=== PATIENT | female | born 1995 | race Caucasian/White ===

== ENCOUNTER 2016-09-17 12:22 | Inpatient (IN) | payer OTHER ==
[~2016-09-17] VITALS: Ht 162.6 cm; Wt 48.7 kg
[2016-09-17] MEDS ORDERED: MoRPHine SULFATE 4 MG/ML 1 ML CARP\\VIAL IV STA ×2 (13:08→18:07)
[2016-09-17] MEDS ORDERED: SODIUM CHLORIDE 0.9% 500ML 500 ML IV SCH (13:15)
[2016-09-17] MEDS ORDERED: MESA1.2T PO (13:34)
[2016-09-17] MEDS ORDERED: MULT-506 PO (13:34)
[2016-09-17] MEDS ORDERED: PRED10TA PO (13:34)
[2016-09-17 13:35] LABS: BASO % 0.1 %; BASO ABS # 0.01 K/uL (0-0.2); COMPLETE YES; EOS % 0.1 %; HEMATOCRIT 46.6 % (37-47); IG% 0.4 %; LYMPH % 8.1 %; MEAN CELL VOLUME 85.2 fL (80-100); MEAN CORPUSCULAR HEMOGLOBIN 27.2 pg (25-34); MONO % 8.3 %; PLATELET COUNT 245 K/uL (130-400); RED BLOOD COUNT 5.47 M/uL (4.2-5.4)
--- NOTE | 2016-09-17 13:36 | DIAGNOSTIC IMAGING REPORT ---
CHEST ONE VIEW PORTABLE CLINICAL HISTORY: Recent travel. Tachycardia. COMPARISON STUDY: No previous studies for comparison. FINDINGS: Lung volumes are normal. Lungs are clear. There is no pneumothorax or pleural effusion. Cardiac size is normal. Mediastinal contours are normal. There is no evidence of pulmonary edema. IMPRESSION: No acute cardiopulmonary findings. Electronically signed by: Chris Luke M.D. 09/17/2016 1:35 PM Dictated Date/Time: 09/17/2016 1:34 PM
[2016-09-17 13:38] LABS: PARTIAL THROMBOPLASTIN RATIO 0.9; PROTHROMBIN TIME (PATIENT) 10.7 SECONDS (9.0-12.0)
[2016-09-17 13:42] LABS: BUN/CREATININE RATIO 10.1 (10-20); CREATININE 0.76 mg/dl (0.60-1.20); POTASSIUM 2.9 mmol/L (3.5-5.1)
[2016-09-17 13:45] LABS: C-REACTIVE PROTEIN 2.32 mg/dl (0-0.29)
--- NOTE | 2016-09-17 14:07 | EMERGENCY ROOM VISIT NOTE ---
History Report prepared by Barbara: Machelle Cuadra Under the Supervision of: Dr. Humberto Loomis M.D. First contact with patient: 12:43 Chief Complaint: LEG PAIN,LEG INJURY Stated Complaint: LEFT LEG DISCOLORED, SWOLLEN AND STIFF History of Present Illness The patient is a 21 year old female who presents to the Emergency Room with complaints of an episode of leg pain starting an hour ago. The patient states that she was walking around when she noticed the pain. She states that she then noticed that her leg turned purple, it became stiff, and swollen. She also states that she noticed the color change at this time. She reports that the pain is worse with movement and better when sitting. She states that the pain is mainly in the upper part of her leg and down the side. She states it is similar pain as a Javier Horse. The patient denies any falls, chest pain, shortness of breath, alcohol use, drug use, tobacco use, and history of a PE or DVT. She notes that she had a long car ride yesterday and flew a week ago. She has a history of ulcerative colitis. Source of History: patient Onset: an hour ago Position: leg Quality: other (Javier Horse) Timing: other (episode) Modifying Factors (Worsening): movement Modifying Factors (Relieving): rest Associated Symptoms: No chest pain, No SOB Note: The patient complains of her leg being swollen, stiff, and changing color. The patient denies any recent falls, alcohol use, drug use, tobacco use, and history of a PE or DVT. Review of Systems See HPI for pertinent positives and negatives. A total of ten systems were reviewed and were otherwise negative. Past Medical & Surgical Medical Problems: (1) Ulcerative colitis Family History Patient reports no known family medical history. Social History Smoking Status: Never Smoker Smokeless Tobacco Use: No Alcohol Use: none Drug Use: none Marital Status: single Housing Status: lives with roommate Occupation Status: student Current/Historical Medications Scheduled Mesalamine (Lialda), 2.4 TAB PO BID Multivitamin (Multivitamin), 1 TAB PO DAILY Prednisone (Prednisone), 10 MG PO TID Allergies Coded Allergies: Adhesives (Verified Allergy, Intermediate, DARK AUGUST ON SKIN AFTER APPLICATION, 09/17/16) Physical Exam Vital Signs Date Time Temp Pulse Resp B/P (MAP) Pulse Ox O2 Delivery O2 Flow Rate FiO2 09/17/16 17:32 81 09/17/16 14:59 82 20 105/72 97 Room Air 09/17/16 13:34 120 18 101/69 99 Room Air 09/17/16 12:55 95 09/17/16 12:45 37.1 121 18 129/95 99 09/17/16 12:30 37.1 121 18 129/95 99 Physical Exam GENERAL: Awake, alert, well-appearing, NAD HENT: Normocephalic, atraumatic. EYES: Normal conjunctiva. Sclera non-icteric. NECK: Supple. No nuchal rigidity. FROM. RESPIRATORY: CTAB, no rhonchi, wheezing, crackles CARDIAC: Tachycardic rate, regular rhythm, no MRG ABDOMEN: Soft, NTND, BS+ MSK: No chest wall TTP, no LE edema. LLE has noticeable color change, purple hue , delayed capillary refill, mildly cool, difficult if cooler than right LE, Doppler pulse present, sensory and motor intact to DP/SP/tibialis nerves NEURO: GCS 15, CN 2-12 intact, moves all 4s on command SKIN: No rash or jaundice noted. Medical Decision & Procedures ER Provider Diagnostic Interpretation: Radiology results as stated below per my review and radiologist interpretation: LEFT LOWER EXTREMITY VENOUS DOPPLER HISTORY: cyanosis of LLE compared to R, recent travel COMPARISON STUDY: None. FINDINGS: There is normal compressibility and augmentation within the left lower extremity deep venous system. There is markedly slow venous flow throughout the lower extremity. IMPRESSION: Markedly slow venous flow throughout the left lower extremity. No DVT within the left lower extremity. Electronically signed by: Bear Santizo M.D. 09/17/2016 3:00 PM Dictated Date/Time: 09/17/2016 2:58 PM ART DOP DUPLEX LW EXT UNI CLINICAL HISTORY: concern for arterial insufficiency TECHNIQUE: Arterial ultrasound COMPARISON STUDY: None FINDINGS: Triphasic waveforms throughout the left leg. Ankle brachial index on the left is 1.17 involving posterior tibial artery. Dorsalis pedis index is 1.07. IMPRESSION: Normal arterial Doppler left leg. The above report was generated using voice recognition software. It may contain grammatical, syntax or spelling errors. Electronically signed by: August Hooper M.D. 09/17/2016 2:57 PM Dictated Date/Time: 09/17/2016 2:55 PM CHEST ONE VIEW PORTABLE CLINICAL HISTORY: Recent travel. Tachycardia. COMPARISON STUDY: No previous studies for comparison. FINDINGS: Lung volumes are normal. Lungs are clear. There is no pneumothorax or pleural effusion. Cardiac size is normal. Mediastinal contours are normal. There is no evidence of pulmonary edema. IMPRESSION: No acute cardiopulmonary findings. Electronically signed by: Chris Luke M.D. 09/17/2016 1:35 PM Dictated Date/Time: 09/17/2016 1:34 PM (CHEST FOR PE) ANGIO WITH CT DOSE: 475.26 mGy.cm HISTORY: 21 years-old Female acute tachycardia and slow flow within the left lower extremity is seen on venous Doppler of same day. No documented deep venous thrombosis identified on comparison study. TECHNIQUE: Multiple CTA images of the chest were obtained after the intravenous administration of 119 Optiray 320. Coronal and sagittal MIPS were obtained from the axial data set and were submitted for review. A dose lowering technique was utilized adhering to the principles of ALARA. COMPARISON: Duplex venous ultrasound of same day. FINDINGS: CTA: Heart is normal in size without large pericardial effusion. The thoracic aorta is normal in both course and caliber without dissection or aneurysm. There is high-grade narrowing of proximal a 70% involving the proximal aspect of the celiac trunk, nicely demonstrated on image 56 of the sagittal series. The pulmonary arterial tree is opacified to the level of the subsegmental branches. Pulmonary emboli are noted bilaterally within the distal right lumbar, posterior basal and lateral basal segments of the right lower lobe. Additional emboli are seen within the posterior basal and lateral basal segmental subsegmental branches of the left lower lobe. There is no evidence of associated right heart strain. CT CHEST: No dominant thyroid nodule. No pathologic adenopathy of the chest. There is a wedge-shaped consolidation of the lateral basal segment left lower lobe, 2.2 x 1.2 cm with surrounding groundglass opacity compatible with a pulmonary infarction. Lung mohan are otherwise clear. High attenuating material seen within the gastric lumen. The bones appear intact. IMPRESSION: 1. Bilateral pulmonary emboli are seen involving the right lower lobar and bilateral lower lobe segmental and subsegmental branches as above. There is no evidence of associated right heart strain, however there is a moderate-sized pulmonary infarction of the left lower lobe. 2. Incidental note is made of approximately 70% narrowing of the proximal celiac trunk suggesting median arcuate ligament syndrome in the appropriate clinical setting. The above report was generated using voice recognition software. It may contain grammatical, syntax or spelling errors. Electronically signed by: Rell Schroeder M.D. 09/17/2016 4:52 PM Dictated Date/Time: 09/17/2016 4:44 PM ABD/PELVIS IV CONTRAST ONLY CT DOSE: HISTORY: Pain. Claudication. concern for possible PE, tachycardia, LLE decreased santiago flow TECHNIQUE: Multiaxial CT images of the abdomen and pelvis were performed following the use of intravenous contrast. A dose lowering technique was utilized adhering to the principles of ALARA. COMPARISON STUDY: None. . Lung bases otherwise are clear. FINDINGS: Nodular density versus round atelectasis lateral aspect left lung base. This measures 12 x 11 mm.. Gallbladder is negative for distention. The kidneys enhance uniformly. Perinephric spaces are intact. Kidneys enhance uniformly Thrombus is noted within the inferior vena cava beginning at the level of the renal vein and extending inferiorly to the left iliac and pelvic veins. There is considerable thrombosis of the left iliac venous structures. The right pelvic venous structures appear patent based on this exam. The Mesenteric artery and venous structures appear patent. Portal venous structures are patent. There are findings of generalized wall edema of the a sending colon which is less prominently seen throughout the remainder the colon. There are findings of hyperemia with moderate wall thickening of considerable components of the small bowel suggesting nonspecific inflammatory process and/or enteritis. IMPRESSION: 1. Extensive thrombus throughout the inferior vena caval and left pelvic venous structures . 2. This extends from the level of the renal veins to the level of the left common femoral venous structures. 3. No evidence for thrombus formation within the hepatic or portal venous systems. 4. Wall edematous change primarily of the a sending colon but seen to a lesser extent throughout the bulk of the remaining colon. 5. Additional wall edema and hyperemia of the bulk of the small bowel. 6. Differential considerations include a generalized enteritis/colitis versus an inflammatory bowel process. 7. Normal appendix. 8. Several reactive nodes within the abdomen and pelvis and inguinal regions. 9. Nodular density left lung base laterally with CT chest follow-up recommended a later date to ensure resolution and exclude a residual nodular process. The above report was generated using voice recognition software. It may contain grammatical, syntax or spelling errors. Electronically signed by: August Hooper M.D. 09/17/2016 5:02 PM Dictated Date/Time: 09/17/2016 4:51 PM Laboratory Results 09/17/16 12:48 Red Blood Count 5.47, Mean Corpuscular Volume 85.2, Mean Corpuscular Hemoglobin 27.2, Mean Corpuscular Hemoglobin Concent 32.0, Mean Platelet Volume 9.0, Neutrophils (%) (Auto) 83.0, Lymphocytes (%) (Auto) 8.1, Monocytes (%) (Auto) 8.3, Eosinophils (%) (Auto) 0.1, Basophils (%) (Auto) 0.1, Neutrophils # (Auto) 10.30, Lymphocytes # (Auto) 1.00, Monocytes # (Auto) 1.03, Eosinophils # (Auto) 0.01, Basophils # (Auto) 0.01 09/17/16 12:48 Test 09/17/16 12:48 09/17/16 17:34 09/17/16 17:35 White Blood Count 12.40 K/uL (4.8-10.8) Red Blood Count 5.47 M/uL (4.2-5.4) Hemoglobin 14.9 g/dL (12.0-16.0) Hematocrit 46.6 % (37-47) Mean Corpuscular Volume 85.2 fL (80-100) Mean Corpuscular Hemoglobin 27.2 pg (25-34) Mean Corpuscular Hemoglobin Concent 32.0 g/dl (32-36) Platelet Count 245 K/uL (130-400) Mean Platelet Volume 9.0 fL (7.4-10.4) Neutrophils (%) (Auto) 83.0 % Lymphocytes (%) (Auto) 8.1 % Monocytes (%) (Auto) 8.3 % Eosinophils (%) (Auto) 0.1 % Basophils (%) (Auto) 0.1 % Neutrophils # (Auto) 10.30 K/uL (1.4-6.5) Lymphocytes # (Auto) 1.00 K/uL (1.2-3.4) Monocytes # (Auto) 1.03 K/uL (0.11-0.59) Eosinophils # (Auto) 0.01 K/uL (0-0.5) Basophils # (Auto) 0.01 K/uL (0-0.2) RDW Standard Deviation 47.0 fL (36.4-46.3) RDW Coefficient of Variation 15.0 % (11.5-14.5) Immature Granulocyte % (Auto) 0.4 % Immature Granulocyte # (Auto) 0.05 K/uL (0.00-0.02) Erythrocyte Sedimentation Rate 44 mm/hr (0-21) Prothrombin Time 10.7 SECONDS (9.0-12.0) Prothromb Time International Ratio 1.0 (0.9-1.1) Activated Partial Thromboplast Time 23.9 SECONDS (21.0-31.0) Partial Thromboplastin Ratio 0.9 Anion Gap 6.0 mmol/L (3-11) Est Creatinine Clear Calc Drug Dose 88.0 ml/min Estimated GFR () 129.1 Estimated GFR (Non- 111.3 BUN/Creatinine Ratio 10.1 (10-20) Calcium Level 9.0 mg/dl (8.5-10.1) Total Bilirubin 0.5 mg/dl (0.2-1) Direct Bilirubin 0.1 mg/dl (0-0.2) Aspartate Amino Transf (AST/SGOT) 9 U/L (15-37) Alanine Aminotransferase (ALT/SGPT) 34 U/L (12-78) Alkaline Phosphatase 55 U/L (45-117) C-Reactive Protein 2.32 mg/dl (0-0.29) Total Protein 8.4 gm/dl (6.4-8.2) Albumin 3.2 gm/dl (3.4-5.0) Bedside Lactic Acid Venous 0.77 mmol/L (0.90-1.70) Venous Blood pH 7.40 (7.36-7.41) Venous Blood Partial Pressure CO2 41 mmHg (38.0-50.0) Venous Blood Partial Pressure O2 44 mmHg Venous Blood HCO3 24 mmol/L Venous Blood Oxygen Saturation 78.4 % Venous Blood Base Excess -0.4 mEq/L Laboratory results reviewed by me Medications Administered Medications (Trade) Dose Ordered Sig/Vladislav Route Start Time Stop Time Status Last Admin Dose Admin Sodium Chloride 500 ml @ 500 mls/hr Q1H IV 09/17/16 13:15 10/17/16 13:14 09/17/16 13:15 500 MLS/HR Magnesium Oxide (Mag-Ox Tab) 800 mg ONE STAT PO 09/17/16 14:44 09/17/16 14:45 DC 09/17/16 15:31 800 MG Potassium Chloride (Klor-Con M10) 40 meq NOW STAT PO 09/17/16 14:44 09/17/16 14:45 DC 09/17/16 15:30 40 MEQ ECG Indication: other (leg pain) Rate (beats per minute): 88 Rhythm: normal sinus Findings: T-wave inversion (isolated V2), other (normal QRS and QTC, no BBB, no S1 Q3 T3) ED Course 1243: The patient was evaluated in room D4B. A complete history and physical exam was performed. 1308: Ordered Morphine Sulfate 4 mg IV. 1315: Ordered NSS 500 ml @ 500 mls/hr IV. 1444: Ordered Potassium Chloride 40 meq PO, Magnesium Oxide 800 mg PO. 1733: Ordered Heparin Sodium/ Dextrose 1 ea N/A. 1743: Discussed the patient's case with Dr. Soliman. The patient will be evaluated for further treatment and disposition. 1745: Discussed the patient's case with Dr. Mendoza. He advised not to give TPA, but heparin is fine. Medical Decision The patient is a 21 year old female who presents to the Emergency Room with complaints of an episode of leg pain starting an hour ago. The patient has a history of ulcerative colitis. Differential diagnoses include DVT, ABM, fracture, sprain, strain, atrial insufficiency. Patient does not have any prior medical history given concern of her left lower extremity discoloration imaging and blood work was obtained. Patient fairly benign blood work however she had a negative arterial ultrasound. The lotion the DVT ultrasound was also negative however did show decreased flow so the concern for IVC pelvic thrombus was concerning and further imaging was obtained. Patient had a CTA PE protocol in addition to CT abdomen and pelvis. Patient had significant IVC and pelvic left lower extremity thrombus. It was also noted on her CT PE protocol that she had bilateral pulmonary emboli in addition to a left lower lobe pulmonary infarct. Patient was started on heparin for stabilization of the clot. It was noted on CT patient did not have any right heart strain. Additional labs were ordered including a BNP troponin ABG and lactate. Upon reassessment of the patient she was told all findings and currently denied any chest pain or shortness of breath. I spoke with of vascular surgery who agreed the patient would not be a candidate for TPA or catheter directed thrombolysis. She agreed that heparin was appropriate at that time. I spoke with the hospitalist service who agreed that the patient would benefit from further intervention and care. Patient was admitted to the medicine service with a vascular consult. Consults Time Called: 171 Consulting Physician: Dr. Soliman Returned Call: [phone] Discussed the patient's case with Dr. Soliman. The patient will be evaluated for further treatment and disposition. Additional Consults: Time Called: 1735 Consulted Physician: Dr. Mendoza- Vascular Returned Call: [phone] Additional Comments: Discussed the patient's case with Dr. Mendoza. He advised not to give TPA, but heparin is fine. 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 This includes bedside care, interpretation of diagnostic studies, and testing, discussion with consultants, patient, and family members, and other required patient management activities. This 42 minutes is in excess of all separately billable procedures. Scribe Attestation The scribe's documentation has been prepared under my direction and personally reviewed by me in its entirety. I confirm that the note above accurately reflects all work, treatment, procedures, and medical decision making performed by me. Departure Information Dispostion Being Evaluated By Hospitalist Referrals No Doctor, Assigned (PCP) Patient Instructions My [facility] Problem Qualifiers
[2016-09-17] MEDS ORDERED: MAGNESIUM OXIDE 400 MG TAB PO STA (14:44)
[2016-09-17] MEDS ORDERED: POTASSIUM CHLORIDE 10 MEQ TABCR PO STA (14:44)
--- NOTE | 2016-09-17 14:58 | DIAGNOSTIC IMAGING REPORT ---
ART DOP DUPLEX LW EXT UNI CLINICAL HISTORY: concern for arterial insufficiency TECHNIQUE: Arterial ultrasound COMPARISON STUDY: None FINDINGS: Triphasic waveforms throughout the left leg. Ankle brachial index on the left is 1.17 involving posterior tibial artery. Dorsalis pedis index is 1.07. IMPRESSION: Normal arterial Doppler left leg. The above report was generated using voice recognition software. It may contain grammatical, syntax or spelling errors. Electronically signed by: Jose L Hooper M.D. 09/17/2016 2:57 PM Dictated Date/Time: 09/17/2016 2:55 PM
--- NOTE | 2016-09-17 15:47 | DIAGNOSTIC IMAGING REPORT ---
LEFT LOWER EXTREMITY VENOUS DOPPLER HISTORY: cyanosis of LLE compared to R, recent travel COMPARISON STUDY: None. FINDINGS: There is normal compressibility and augmentation within the left lower extremity deep venous system. There is markedly slow venous flow throughout the lower extremity. IMPRESSION: Markedly slow venous flow throughout the left lower extremity. No DVT within the left lower extremity. Electronically signed by: Bear Santizo M.D. 09/17/2016 3:00 PM Dictated Date/Time: 09/17/2016 2:58 PM
[2016-09-17] MEDS ORDERED: OPTIRAY 320 IV PRN (16:15)
--- NOTE | 2016-09-17 16:54 | DIAGNOSTIC IMAGING REPORT ---
(CHEST FOR PE) ANGIO WITH CT DOSE: 475.26 mGy.cm HISTORY: 21 years-old Female acute tachycardia and slow flow within the left lower extremity is seen on venous Doppler of same day. No documented deep venous thrombosis identified on comparison study. TECHNIQUE: Multiple CTA images of the chest were obtained after the intravenous administration of 119 Optiray 320. Coronal and sagittal MIPS were obtained from the axial data set and were submitted for review. A dose lowering technique was utilized adhering to the principles of ALARA. COMPARISON: Duplex venous ultrasound of same day. FINDINGS: CTA: Heart is normal in size without large pericardial effusion. The thoracic aorta is normal in both course and caliber without dissection or aneurysm. There is high-grade narrowing of proximal a 70% involving the proximal aspect of the celiac trunk, nicely demonstrated on image 56 of the sagittal series. The pulmonary arterial tree is opacified to the level of the subsegmental branches. Pulmonary emboli are noted bilaterally within the distal right lumbar, posterior basal and lateral basal segments of the right lower lobe. Additional emboli are seen within the posterior basal and lateral basal segmental subsegmental branches of the left lower lobe. There is no evidence of associated right heart strain. CT CHEST: No dominant thyroid nodule. No pathologic adenopathy of the chest. There is a wedge-shaped consolidation of the lateral basal segment left lower lobe, 2.2 x 1.2 cm with surrounding groundglass opacity compatible with a pulmonary infarction. Lung mohan are otherwise clear. High attenuating material seen within the gastric lumen. The bones appear intact. IMPRESSION: 1. Bilateral pulmonary emboli are seen involving the right lower lobar and bilateral lower lobe segmental and subsegmental branches as above. There is no evidence of associated right heart strain, however there is a moderate-sized pulmonary infarction of the left lower lobe. 2. Incidental note is made of approximately 70% narrowing of the proximal celiac trunk suggesting median arcuate ligament syndrome in the appropriate clinical setting. The above report was generated using voice recognition software. It may contain grammatical, syntax or spelling errors. Electronically signed by: Rell Schroeder M.D. 09/17/2016 4:52 PM Dictated Date/Time: 09/17/2016 4:44 PM
--- NOTE | 2016-09-17 17:03 | DIAGNOSTIC IMAGING REPORT ---
ABD/PELVIS IV CONTRAST ONLY CT DOSE: HISTORY: Pain. Claudication. concern for possible PE, tachycardia, LLE decreased santiago flow TECHNIQUE: Multiaxial CT images of the abdomen and pelvis were performed following the use of intravenous contrast. A dose lowering technique was utilized adhering to the principles of ALARA. COMPARISON STUDY: None. . Lung bases otherwise are clear. FINDINGS: Nodular density versus round atelectasis lateral aspect left lung base. This measures 12 x 11 mm.. Gallbladder is negative for distention. The kidneys enhance uniformly. Perinephric spaces are intact. Kidneys enhance uniformly Thrombus is noted within the inferior vena cava beginning at the level of the renal vein and extending inferiorly to the left iliac and pelvic veins. There is considerable thrombosis of the left iliac venous structures. The right pelvic venous structures appear patent based on this exam. The Mesenteric artery and venous structures appear patent. Portal venous structures are patent. There are findings of generalized wall edema of the a sending colon which is less prominently seen throughout the remainder the colon. There are findings of hyperemia with moderate wall thickening of considerable components of the small bowel suggesting nonspecific inflammatory process and/or enteritis. IMPRESSION: 1. Extensive thrombus throughout the inferior vena caval and left pelvic venous structures . 2. This extends from the level of the renal veins to the level of the left common femoral venous structures. 3. No evidence for thrombus formation within the hepatic or portal venous systems. 4. Wall edematous change primarily of the a sending colon but seen to a lesser extent throughout the bulk of the remaining colon. 5. Additional wall edema and hyperemia of the bulk of the small bowel. 6. Differential considerations include a generalized enteritis/colitis versus an inflammatory bowel process. 7. Normal appendix. 8. Several reactive nodes within the abdomen and pelvis and inguinal regions. 9. Nodular density left lung base laterally with CT chest follow-up recommended a later date to ensure resolution and exclude a residual nodular process. The above report was generated using voice recognition software. It may contain grammatical, syntax or spelling errors. Electronically signed by: Jose L Hooper M.D. 09/17/2016 5:02 PM Dictated Date/Time: 09/17/2016 4:51 PM
[2016-09-17 17:44] LABS: VEN BLD GAS O2 SATURATION 78.4 %; VEN BLOOD GAS BASE EXCESS -0.4 mEq/L
[2016-09-17] MEDS ORDERED: HEPARIN SOD 5000 UNIT/0.5 ML CARP ONE (17:50)
[2016-09-17] MEDS ORDERED: HEPARIN 25000 UNIT/500 ML D5W ONE (17:50)
[2016-09-17 17:55] VITALS: O2SAT 97; Ht 162.6 cm; Wt 48.7 kg
[2016-09-17 17:59] LABS: POINT OF CARE PRO-BNP 71 pg/ml (0-450); POINT OF CARE TROPONIN I < 0.030 ng/ml (0-0.045)
[2016-09-17] MEDS ORDERED: ONDANSETRON INJ 2 MG/ML 2 ML VIAL IV PRN (18:30)
[2016-09-17] MEDS ORDERED: ZOLPIDEM TARTRATE 5 MG TAB PO PRN (18:30)
[2016-09-17] MEDS ORDERED: POLYETHYLENE (MIRALAX) 17 GM PACK PO PRN (18:30)
[2016-09-17] MEDS ORDERED: MAGNESIUM HYDROXIDE SUSP 30 ML UDC PO PRN (18:30)
[2016-09-17] MEDS ORDERED: ALUMINUM/MAGNESIUM/SIMETH (MAALOX MAX) 30 ML UDC PO PRN (18:30)
--- NOTE | 2016-09-17 19:27 | History and Physical ---
History & Physical Date & Time of Service: Sep 17, 2016 at 18:40 Chief Complaint: Left Leg Discolored, Swollen And Stiff Primary Care Physician: No Doctor, Assigned History of Present Illness Source: patient 21 y/o F Hx UC . Pt was recently on flights to [place] and then also drove to [place] from [facility]. She developed pain and swelling in her LLE and presented for evaluation. She denies SOB, CP or palpitations. A CT abdomen/ pelvis revealed a DVT extending from the pelvic veins into the IVC. A CT chest revealed B/L pulmonary emboli in addition to a LLL pulmonary infarct. Past Medical/Surgical History History of UC - diagnosed 1 month ago - she had either polyps or pseudopolyps on a colonoscopy - She is on a steroid taper and Mesalamine. It is noted that a CT obtained in the ER may indicate small bowel involvement in which case her diagnosis would be Crohns rather than UC Family History Patient reports no known family medical history. Father with DM - Mother post had breast CA Social History Smoking Status: Never Smoker Smokeless Tobacco Use: No Drug Use: none Marital Status: single Occupational Status: student Allergies Coded Allergies: Adhesives (Verified Allergy, Intermediate, DARK AUGUST ON SKIN AFTER APPLICATION, 09/17/16) Home Medications Scheduled Mesalamine (Lialda), 2.4 TAB PO BID Multivitamin (Multivitamin), 1 TAB PO DAILY Prednisone (Prednisone), 10 MG PO TID Review of Systems Constitutional: No fever, No chills, No sweats Eyes: No worsening of vision ENT: No hearing loss, No unusual epistaxis, No nasal symptoms Respiratory: No cough, No sputum, No wheezing Cardiovascular: No chest pain, No orthopnea, No PND Abdomen: No pain, No nausea, No vomiting Musculoskeletal: + problem reported (LLE pain / swelling), No joint pain Genitourinary - Female: No dysuria, No urinary frequency, No urinary urgency Neurologic: No memory loss, No paralysis, No weakness Psychiatric: No depression symptoms Endocrine: No fatigue Hematologic / Lymphatic: No abnormal bleeding/bruising Integumentary: No rash Allergic / Immunologic: No environmental allergies Physical Exam Vital Signs Date Time Temp Pulse Resp B/P (MAP) Pulse Ox O2 Delivery O2 Flow Rate FiO2 09/17/16 18:13 99 18 101/76 98 Room Air 09/17/16 17:55 97 Room Air 09/17/16 17:32 81 09/17/16 14:59 82 20 105/72 97 Room Air 09/17/16 13:34 120 18 101/69 99 Room Air 09/17/16 12:55 95 09/17/16 12:45 37.1 121 18 129/95 99 09/17/16 12:30 37.1 121 18 129/95 99 General Appearance: WD/WN, no apparent distress Head: normocephalic Eyes: normal inspection ENT: normal ENT inspection, pharynx normal Neck: supple, no JVD Respiratory/Chest: chest non-tender, lungs clear, normal breath sounds Cardiovascular: regular rate, rhythm, no edema, no gallop Abdomen/GI: normal bowel sounds, non tender, soft Back: normal inspection, no CVA tenderness, no muscle spasm, normal range of motion Extremities/Musculoskelatal: + pertinent finding (LLE appears enlarged - pulses present) Neurologic/Psych: acetone button paster II-XII nml as tested, no motor/sensory deficits, alert, normal mood/affect, normal reflexes, oriented x 3 Skin: normal color, warm/dry Diagnostics Laboratory Results Results Past 24 Hours Test 09/17/16 12:48 09/17/16 17:34 09/17/16 17:35 09/17/16 17:42 Range/Units White Blood Count 12.40 4.8-10.8 K/uL Red Blood Count 5.47 4.2-5.4 M/uL Hemoglobin 14.9 12.0-16.0 g/dL Hematocrit 46.6 37-47 % Mean Corpuscular Volume 85.2 80-100 fL Mean Corpuscular Hemoglobin 27.2 25-34 pg Mean Corpuscular Hemoglobin Concent 32.0 32-36 g/dl Platelet Count 245 130-400 K/uL Mean Platelet Volume 9.0 7.4-10.4 fL Neutrophils (%) (Auto) 83.0 % Lymphocytes (%) (Auto) 8.1 % Monocytes (%) (Auto) 8.3 % Eosinophils (%) (Auto) 0.1 % Basophils (%) (Auto) 0.1 % Neutrophils # (Auto) 10.30 1.4-6.5 K/uL Lymphocytes # (Auto) 1.00 1.2-3.4 K/uL Monocytes # (Auto) 1.03 0.11-0.59 K/uL Eosinophils # (Auto) 0.01 0-0.5 K/uL Basophils # (Auto) 0.01 0-0.2 K/uL RDW Standard Deviation 47.0 36.4-46.3 fL RDW Coefficient of Variation 15.0 11.5-14.5 % Immature Granulocyte % (Auto) 0.4 % Immature Granulocyte # (Auto) 0.05 0.00-0.02 K/uL Erythrocyte Sedimentation Rate 44 0-21 mm/hr Prothrombin Time 10.7 9.0-12.0 SECONDS Prothromb Time International Ratio 1.0 0.9-1.1 Activated Partial Thromboplast Time 23.9 21.0-31.0 SECONDS Partial Thromboplastin Ratio 0.9 Sodium Level 139 136-145 mmol/L Potassium Level 2.9 3.5-5.1 mmol/L Chloride Level 104 98-107 mmol/L Carbon Dioxide Level 29 21-32 mmol/L Anion Gap 6.0 3-11 mmol/L Blood Urea Nitrogen 8 7-18 mg/dl Creatinine 0.76 0.60-1.20 mg/dl Est Creatinine Clear Calc Drug Dose 88.0 ml/min Estimated GFR () 129.1 Estimated GFR (Non- 111.3 BUN/Creatinine Ratio 10.1 10-20 Random Glucose 100 70-99 mg/dl Calcium Level 9.0 8.5-10.1 mg/dl Total Bilirubin 0.5 0.2-1 mg/dl Direct Bilirubin 0.1 0-0.2 mg/dl Aspartate Amino Transf (AST/SGOT) 9 15-37 U/L Alanine Aminotransferase (ALT/SGPT) 34 12-78 U/L Alkaline Phosphatase 55 45-117 U/L C-Reactive Protein 2.32 0-0.29 mg/dl Total Protein 8.4 6.4-8.2 gm/dl Albumin 3.2 3.4-5.0 gm/dl Bedside Lactic Acid Venous 0.77 0.90-1.70 mmol/L Venous Blood pH 7.40 7.36-7.41 Venous Blood Partial Pressure CO2 41 38.0-50.0 mmHg Venous Blood Partial Pressure O2 44 mmHg Venous Blood HCO3 24 mmol/L Venous Blood Oxygen Saturation 78.4 % Venous Blood Base Excess -0.4 mEq/L Bedside Troponin I < 0.030 0-0.045 ng/ml [id number]-[id number]-Type Natriuretic Peptide 71 0-450 pg/ml Diagnostic Radiology CT abdomen/pelvis 1. Extensive thrombus throughout the inferior vena caval and left pelvic venous structures . 2. This extends from the level of the renal veins to the level of the left common femoral venous structures. 3. No evidence for thrombus formation within the hepatic or portal venous systems. 4. Wall edematous change primarily of the a sending colon but seen to a lesser extent throughout the bulk of the remaining colon. 5. Additional wall edema and hyperemia of the bulk of the small bowel. 6. Differential considerations include a generalized enteritis/colitis versus an inflammatory bowel process. 7. Normal appendix. 8. Several reactive nodes within the abdomen and pelvis and inguinal regions. 9. Nodular density left lung base laterally with CT chest follow-up recommended a later date to ensure resolution and exclude a residual nodular process. CTA 1. Bilateral pulmonary emboli are seen involving the right lower lobar and bilateral lower lobe segmental and subsegmental branches as above. There is no evidence of associated right heart strain, however there is a moderate-sized pulmonary infarction of the left lower lobe. 2. Incidental note is made of approximately 70% narrowing of the proximal celiac trunk suggesting median arcuate ligament syndrome in the appropriate clinical setting. US L lower Markedly slow venous flow throughout the left lower extremity. No DVT within the left lower extremity. Normal EKG Impression Assessment and Plan 21 y/o F Hx UC . Pt was recently on flights to [place] and then also drove to [place] from [facility]. She developed pain and swelling in her LLE and presented for evaluation. She denies SOB, CP or palpitations. A CT abdomen/ pelvis revealed a DVT extending from the pelvic veins into the IVC. A CT chest revealed B/L pulmonary emboli in addition to a LLL pulmonary infarct. 1) DVT/PE - infarct - placed on full dose Heparin. Would obtain hypercoag w/u in outpt setting. Consider vascular consult with any clinical worsening. She may be prone to thrombi based on her IBD. 2) UC vs Crohns - can f/u as outpt - CT obtained in the ER may indicate small bowel involvement in which case her diagnosis would be Crohns rather than UC if there is small bowel involvement then Mesalamine will not prove useful. Watch for GI bleeding. Full code - Full-dose Heparin Total time for this admit including review of labs, meds, EKG - discussion with pt and ER attending - [address] obtained in the ER may indicate small bowel involvement in which case her diagnosis would be Crohns rather than UC Level of Care Telemetry Advanced Directives Existing Living Will: No Existing Power of Timber Setter: No Resuscitation Status FULL RESUSCITATION VTE Prophylaxis VTE Risk Assessment Done? Y/N: Yes Risk Level: High Given or contraindicated: Other Anticoagulation
[2016-09-17] MEDS: ACETAMINOPHEN 325 MG TAB PO PRN (21:09)
[2016-09-17] MEDS ORDERED: NURSING VERBAL MED ORDER ONE (21:30)
[2016-09-17] MEDS: OXYCODONE/ACETAMINOPHEN 5-325 TAB PO PRN (21:36)
[2016-09-18] VITALS (10 sets, daily range): BP systolic 105–116; BP diastolic 71–83; PULSE 71–92; TEMP 37–37.2; O2SAT 96–99
[2016-09-18 00:46] LABS: PARTIAL THROMBOPLASTIN RATIO 1.5
[2016-09-18] MEDS ORDERED: HEPARIN IV BOLUS 4,000 UNIT in SYRINGE 0 ML IV STA (01:18)
[2016-09-18] MEDS: HEPARIN 25,000 UNIT/500ML D5W 500 ML IV PRN ×2 (01:33→17:16)
[2016-09-18 07:41] LABS: PARTIAL THROMBOPLASTIN RATIO 2.4
[2016-09-18 09:06] LABS: HEMATOCRIT 43.7 % (37-47); MEAN CELL VOLUME 84.7 fL (80-100); MEAN CORPUSCULAR HEMOGLOBIN 26.9 pg (25-34); MEAN CORPUSCULAR HGB CONC 31.8 g/dl (32-36); MEAN PLATELET VOLUME 9.1 fL (7.4-10.4); PLATELET COUNT 257 K/uL (130-400); RED BLOOD COUNT 5.16 M/uL (4.2-5.4); WHITE BLOOD COUNT 10.79 K/uL (4.8-10.8)
[2016-09-18 09:38] LABS: BUN/CREATININE RATIO 13.2 (10-20); CREATININE 0.76 mg/dl (0.60-1.20); POTASSIUM 3.3 mmol/L (3.5-5.1)
--- NOTE | 2016-09-18 09:59 | Hospitalist Progress Note ---
Hospitalist Progress Note Date of Service Sep 18, 2016. Subjective Pt evaluation today including: conversation w/ patient, physical exam, chart review, lab review, review of studies, review of inpatient medication list Patient seen and evaluated. Reports that her LLE appears more edematous than yesterday but is not painful. Extremity it cooler to touch than RLE but pulses are present. 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 She states she was set up with GI from them but providers only stop in intermittently. Her permanent address is in [place] but mother lives here is [place], [place]. She originally planned to go to [place] Friday but states she can be flexible She denies family history of blood clots and has no history of them herself. She does report that from June until about a month ago she was largely bedridden as they did not know what was causing her GI symptoms and was utilizing anti- spasmodics prior to treating UC. Was previously on contraceptives She is also on prednisone taper 10 mg TID. She was supposed to move to BID dosing but symptoms worsened and GI doc instructed her to continue TID dosing with no further instructions of when to decreased to BID. She denies SOB or pleuritic chest pain Constitutional: No fever, No chills Respiratory: No cough, No sputum, No wheezing, No shortness of breath, No hemoptysis Cardiovascular: No chest pain, No palpitations Abdomen: No pain, No nausea, No vomiting Female : No dysuria Heme: No abnormal bleeding/bruising Skin: No rash Medications Current Inpatient Medications Medications (Trade) Dose Ordered Sig/Vladislav Route Start Time Stop Time Status Last Admin Dose Admin Ioversol (Optiray 320) 111 ml UD PRN IV 09/17/16 16:15 09/21/16 16:14 Prednisone (PredniSONE TAB) 10 mg TID PO 09/18/16 09:00 10/18/16 08:59 09/18/16 07:43 10 MG Miscellaneous Information (Order Awaiting Action) 1 ea QS N/A 09/18/16 00:00 10/18/16 00:00 Acetaminophen (Tylenol Tab) 650 mg Q4H PRN PO 09/17/16 18:30 10/17/16 18:29 09/17/16 21:09 650 MG Al Hydrox/Mg Hydrox/Simethicone (Maalox Max Susp) 15 ml Q4H PRN PO 09/17/16 18:30 10/17/16 18:29 Magnesium Hydroxide (Milk Of Magnesia Susp) 30 ml Q12H PRN PO 09/17/16 18:30 10/17/16 18:29 Zolpidem Tartrate (Ambien Tab) 5 mg HSZ PRN PO 09/17/16 18:30 10/17/16 18:29 Ondansetron HCl (Zofran Inj) 4 mg Q6H PRN IV 09/17/16 18:30 10/17/16 18:29 Polyethylene (Miralax Powder Packet) 17 gm DAILY PRN PO 09/17/16 18:30 10/17/16 18:29 Heparin Sodium/ Dextrose 500 ml @ 21 mls/hr [id number] PRN IV 09/17/16 19:00 10/17/16 18:59 09/18/16 01:33 21 MLS/HR Oxycodone/ Acetaminophen (Percocet 5-325mg Tab) 1 tab Q6H PRN PO 09/17/16 21:30 10/01/16 21:29 09/17/16 21:36 1 TAB Objective Vital Signs Date Time Temp Pulse Resp B/P (MAP) Pulse Ox O2 Delivery O2 Flow Rate FiO2 09/18/16 08:00 99 Room Air 09/18/16 07:54 37.1 71 20 116/83 (94) 99 Room Air 09/18/16 04:15 37.0 92 16 110/78 (89) 98 Room Air 09/18/16 04:00 Room Air 09/18/16 00:13 37.0 89 16 105/72 (83) 96 Room Air 09/18/16 00:00 Room Air 09/17/16 18:13 99 18 101/76 98 Room Air 09/17/16 17:55 97 Room Air 09/17/16 17:32 81 09/17/16 14:59 82 20 105/72 97 Room Air 09/17/16 13:34 120 18 101/69 99 Room Air 09/17/16 12:55 95 09/17/16 12:45 37.1 121 18 129/95 99 09/17/16 12:30 37.1 121 18 129/95 99 Physical Exam General Appearance: WD/WN, no apparent distress, + thin Eyes: sclerae normal ENT: hearing grossly normal Neck: supple, no JVD, trachea midline Respiratory/Chest: lungs clear, normal breath sounds, no respiratory distress, no accessory muscle use Cardiovascular: regular rate, rhythm, no gallop, no murmur Abdomen: normal bowel sounds, non tender, soft Extremities: + pertinent finding (LLE edematous compared to RLE; LLE cooler to touch; +posterior tibialis pulses) Neurologic/Psychiatric: alert, oriented x 3 Skin: normal color, warm/dry Laboratory Results Last 24 Hours Test 09/17/16 12:48 09/17/16 17:34 09/17/16 17:35 09/17/16 17:42 White Blood Count 12.40 K/uL Red Blood Count 5.47 M/uL Hemoglobin 14.9 g/dL Hematocrit 46.6 % Mean Corpuscular Volume 85.2 fL Mean Corpuscular Hemoglobin 27.2 pg Mean Corpuscular Hemoglobin Concent 32.0 g/dl Platelet Count 245 K/uL Mean Platelet Volume 9.0 fL Neutrophils (%) (Auto) 83.0 % Lymphocytes (%) (Auto) 8.1 % Monocytes (%) (Auto) 8.3 % Eosinophils (%) (Auto) 0.1 % Basophils (%) (Auto) 0.1 % Neutrophils # (Auto) 10.30 K/uL Lymphocytes # (Auto) 1.00 K/uL Monocytes # (Auto) 1.03 K/uL Eosinophils # (Auto) 0.01 K/uL Basophils # (Auto) 0.01 K/uL RDW Standard Deviation 47.0 fL RDW Coefficient of Variation 15.0 % Immature Granulocyte % (Auto) 0.4 % Immature Granulocyte # (Auto) 0.05 K/uL Erythrocyte Sedimentation Rate 44 mm/hr Prothrombin Time 10.7 SECONDS Prothromb Time International Ratio 1.0 Activated Partial Thromboplast Time 23.9 SECONDS Partial Thromboplastin Ratio 0.9 Sodium Level 139 mmol/L Potassium Level 2.9 mmol/L Chloride Level 104 mmol/L Carbon Dioxide Level 29 mmol/L Anion Gap 6.0 mmol/L Blood Urea Nitrogen 8 mg/dl Creatinine 0.76 mg/dl Est Creatinine Clear Calc Drug Dose 88.0 ml/min Estimated GFR () 129.1 Estimated GFR (Non- 111.3 BUN/Creatinine Ratio 10.1 Random Glucose 100 mg/dl Calcium Level 9.0 mg/dl Total Bilirubin 0.5 mg/dl Direct Bilirubin 0.1 mg/dl Aspartate Amino Transf (AST/SGOT) 9 U/L Alanine Aminotransferase (ALT/SGPT) 34 U/L Alkaline Phosphatase 55 U/L C-Reactive Protein 2.32 mg/dl Total Protein 8.4 gm/dl Albumin 3.2 gm/dl Bedside Lactic Acid Venous 0.77 mmol/L Venous Blood pH 7.40 Venous Blood Partial Pressure CO2 41 mmHg Venous Blood Partial Pressure O2 44 mmHg Venous Blood HCO3 24 mmol/L Venous Blood Oxygen Saturation 78.4 % Venous Blood Base Excess -0.4 mEq/L Bedside Troponin I < 0.030 ng/ml [id number] Natriuretic Peptide 71 pg/ml Test 09/18/16 00:19 09/18/16 07:00 09/18/16 08:28 Activated Partial Thromboplast Time 39.5 SECONDS 63.0 SECONDS Partial Thromboplastin Ratio 1.5 2.4 White Blood Count 10.79 K/uL Red Blood Count 5.16 M/uL Hemoglobin 13.9 g/dL Hematocrit 43.7 % Mean Corpuscular Volume 84.7 fL Mean Corpuscular Hemoglobin 26.9 pg Mean Corpuscular Hemoglobin Concent 31.8 g/dl Platelet Count 257 K/uL Mean Platelet Volume 9.1 fL RDW Standard Deviation 46.9 fL RDW Coefficient of Variation 15.1 % Sodium Level 136 mmol/L Potassium Level 3.3 mmol/L Chloride Level 100 mmol/L Carbon Dioxide Level 27 mmol/L Anion Gap 9.0 mmol/L Blood Urea Nitrogen 10 mg/dl Creatinine 0.76 mg/dl Est Creatinine Clear Calc Drug Dose 89.4 ml/min Estimated GFR () 129.1 Estimated GFR (Non- 111.3 BUN/Creatinine Ratio 13.2 Random Glucose 97 mg/dl Calcium Level 9.0 mg/dl Assessment and Plan Ms. Sanchez is a 21 y/o female with PMHx of Ulcerative Colitis who presents for DVT in pelvic vessels/IVC and B/L PEs with LLL infarct Provoked Pelvic/IVC DVT and B/L PEs with LLL Infarct: STABLE - Patient with pro-inflammatory state 2/2 UC, limited mobilization 2/2 illness, contraceptives, and recent travel - Hypercoaguable work-up can be considered as outpatient as heparin already initiated - Heparin gtt with plans to utilize Coumadin per recommendations from Heme/Onc -- Continue heparin gtt while awaiting for any invasive intervention - Heme/Onc following - recommend heparing gtt x 5-7 days then Coumadin possibly 3-6 months - Vascular consulation - IVC filter? surgical intervention Ulcerative Colitis vs Crohns: - CT with evidence of small bowel involvement - should send CD-rom with imaging so she can take to her GI doctor -- Follows with Dr. Carnes in [place] - Prednisone 10 mg TID - is utilizing taper -- Should be on BID dosing as of last weekend but her GI symptoms worsend and her GI doctor recommended staying of TID dosing for now without further instructions - Mesalamine BID - non-formulary and patient will have to bring medication DVT Prophylaxis: Heparin Code Status: FULL RESUSCITATION Disposition: - Will await evaluation by Heme and Vascular - will need conversion to oral anticoagulants - She is due to return to [place] on Friday but said she is flexible - No PCP but [facility] who set up her GI doctor Continued [facility] stay due to: multiple IV medications needed Discharge planning: home
[2016-09-18] MEDS ORDERED: POTASSIUM CHLORIDE 10 MEQ TABCR PO ONE (10:00)
[2016-09-18 10:02] LABS: BASO % 0.2 %; BASO ABS # 0.02 K/uL (0-0.2); COMPLETE YES; EOS % 0.7 %; IG% 0.5 %; LYMPH % 16.9 %; LYMPH ABS # 1.82 K/uL (1.2-3.4); MONO % 9.8 %; NEUT % 71.9 %; TOXIC GRANULATION 1+
--- NOTE | 2016-09-18 10:21 | Oncology Consultation ---
Oncology/Heme Consultation Date of Consultation: Sep 18, 2016. Attending Physician: Niko Cerna D.O. Reason for Consultation: History of deep venous thrombosis and pulmonary embolism recently diagnosed History of Present Illness Ms. Adler is a 21-year-old female that just arrived to [place] after traveling from [facility]. She arrived a few days ago and yesterday her left leg became swollen and she states turned somewhat purple. She was found to have in the emergency room extensive deep venous thrombosis in the abdomen primarily left-sided as well as evidence of pulmonary emboli. There may also be pulmonary change consistent with pulmonary infarction. She denies shortness of breath. She denies hemoptysis. She denies any chest pain. She states that she has never had a blood clot before. There is no family history of blood clots. She had been on control medicine up until about a month ago. Finally she was recently diagnosed she states and she appears to be a good historian as having ulcerative colitis. Past Medical/Surgical History Medical Problems: (1) IVC thrombosis Status: Acute (2) Leg pain Status: Acute (3) Pulmonary emboli Status: Acute (4) Pulmonary infarct Status: Acute (5) Thrombosis of pelvic vein Status: Acute Family History Patient reports no known family medical history. No family history of blood clots Social History She is to smoke but she states she quit quite a while ago she drinks alcohol only occasionally Smoking Status: Never Smoker Smokeless Tobacco Use: No Drug Use: none Marital Status: single Housing Status: lives with roommate Occupation Status: student Allergies Coded Allergies: Adhesives (Verified Allergy, Intermediate, DARK AUGUST ON SKIN AFTER APPLICATION, 09/17/16) Home Medications Scheduled Mesalamine (Lialda), 2.4 TAB PO BID Multivitamin (Multivitamin), 1 TAB PO DAILY Prednisone (Prednisone), 10 MG PO TID Current Inpatient Medications Current Inpatient Medications Medications (Trade) Dose Ordered Sig/Vladislav Route Start Time Stop Time Status Last Admin Dose Admin Ioversol (Optiray 320) 111 ml UD PRN IV 09/17/16 16:15 09/21/16 16:14 Prednisone (PredniSONE TAB) 10 mg TID PO 09/18/16 09:00 10/18/16 08:59 09/18/16 07:43 10 MG Miscellaneous Information (Order Awaiting Action) 1 ea QS N/A 09/18/16 00:00 10/18/16 00:00 Acetaminophen (Tylenol Tab) 650 mg Q4H PRN PO 09/17/16 18:30 10/17/16 18:29 09/17/16 21:09 650 MG Al Hydrox/Mg Hydrox/Simethicone (Maalox Max Susp) 15 ml Q4H PRN PO 09/17/16 18:30 10/17/16 18:29 Magnesium Hydroxide (Milk Of Magnesia Susp) 30 ml Q12H PRN PO 09/17/16 18:30 10/17/16 18:29 Zolpidem Tartrate (Ambien Tab) 5 mg HSZ PRN PO 09/17/16 18:30 10/17/16 18:29 Ondansetron HCl (Zofran Inj) 4 mg Q6H PRN IV 09/17/16 18:30 10/17/16 18:29 Polyethylene (Miralax Powder Packet) 17 gm DAILY PRN PO 09/17/16 18:30 10/17/16 18:29 Heparin Sodium/ Dextrose 500 ml @ 21 mls/hr [id number] PRN IV 09/17/16 19:00 10/17/16 18:59 09/18/16 01:33 21 MLS/HR Oxycodone/ Acetaminophen (Percocet 5-325mg Tab) 1 tab Q6H PRN PO 09/17/16 21:30 10/01/16 21:29 09/17/16 21:36 1 TAB Review of Systems Constitutional: Negative for weight loss, night sweats, or fever Eyes: Negative for event change of vision ENT: Negative for epistaxis, nasal discharge, sore throat, or deafness Cardiovascular: Negative for chest pain, palpitations, dizziness, diaphoresis Respiratory: Negative for new shortness of breath,hemoptysis, or purulent cough Gastrointestinal: Negative for hematemesis, melena, nausea, vomiting, or dyspepsia. She states that she was found to have ulcerative colitis after she had had abdominal discomfort and diarrhea. Again she denies any blood in her stool Integumentary (skin): Negative for rash or jaundice discoloration Genitourinary: Negative for urinary frequency, hematuria, or dysuria Neurological: Negative for weakness, seizure activity, headache, or dizziness Lymphatic/Hematologic: Negative for petechiae, bleeding or new adenopathy Musculoskeletal: Negative for new joint or back pain. Left lower extremity is swollen as stated. Allergic/Immunologic: Negative for unusual rash or pruritis. Physical Exam Date Time Temp Pulse Resp B/P (MAP) Pulse Ox O2 Delivery O2 Flow Rate FiO2 09/18/16 08:00 99 Room Air 09/18/16 07:54 37.1 71 20 116/83 (94) 99 Room Air 09/18/16 04:15 37.0 92 16 110/78 (89) 98 Room Air 09/18/16 04:00 Room Air 09/18/16 00:13 37.0 89 16 105/72 (83) 96 Room Air 09/18/16 00:00 Room Air 09/17/16 18:13 99 18 101/76 98 Room Air 09/17/16 17:55 97 Room Air 09/17/16 17:32 81 09/17/16 14:59 82 20 105/72 97 Room Air 09/17/16 13:34 120 18 101/69 99 Room Air 09/17/16 12:55 95 09/17/16 12:45 37.1 121 18 129/95 99 09/17/16 12:30 37.1 121 18 129/95 99 Constitutional: vitals are stable. She appears quite comfortable. Eyes: Eyes are CHRISTY EOMI without conjuctival erythema or icterus. ENT: External examination was negative for masses. Neck: Negative for masses or palpable thyromegaly Respiratory: Lung sounds were generally clear bilaterally Cardiovascular: Heart was RRR without significant murmur, gallops aoe rubs Gastrointestinal: No palpable hepatic or splenomegaly. The abdomen was soft with normal bowel sounds. Lymphatic system: there was no palpable peripheral lymphadenopathy Musculoskeletal System: The musculoskeletal system seemed concordant with age. Skin: The skin was negative for jaundice. Neurologic exam: The exam was negative for any focal findings. Deep tendon reflexes were equal and symmetrical. Psychiatric exam: Was essentially negative with normal mood and effect. Breast exam: Not done Extremities: Left lower extremity is edematous and involves the thigh down. There is slight discoloration to the leg. It is nontender Laboratory Results Last 24 Hours Test 09/17/16 12:48 09/17/16 17:34 09/17/16 17:35 09/17/16 17:42 White Blood Count 12.40 K/uL Red Blood Count 5.47 M/uL Hemoglobin 14.9 g/dL Hematocrit 46.6 % Mean Corpuscular Volume 85.2 fL Mean Corpuscular Hemoglobin 27.2 pg Mean Corpuscular Hemoglobin Concent 32.0 g/dl Platelet Count 245 K/uL Mean Platelet Volume 9.0 fL Neutrophils (%) (Auto) 83.0 % Lymphocytes (%) (Auto) 8.1 % Monocytes (%) (Auto) 8.3 % Eosinophils (%) (Auto) 0.1 % Basophils (%) (Auto) 0.1 % Neutrophils # (Auto) 10.30 K/uL Lymphocytes # (Auto) 1.00 K/uL Monocytes # (Auto) 1.03 K/uL Eosinophils # (Auto) 0.01 K/uL Basophils # (Auto) 0.01 K/uL RDW Standard Deviation 47.0 fL RDW Coefficient of Variation 15.0 % Immature Granulocyte % (Auto) 0.4 % Immature Granulocyte # (Auto) 0.05 K/uL Erythrocyte Sedimentation Rate 44 mm/hr Prothrombin Time 10.7 SECONDS Prothromb Time International Ratio 1.0 Activated Partial Thromboplast Time 23.9 SECONDS Partial Thromboplastin Ratio 0.9 Sodium Level 139 mmol/L Potassium Level 2.9 mmol/L Chloride Level 104 mmol/L Carbon Dioxide Level 29 mmol/L Anion Gap 6.0 mmol/L Blood Urea Nitrogen 8 mg/dl Creatinine 0.76 mg/dl Est Creatinine Clear Calc Drug Dose 88.0 ml/min Estimated GFR () 129.1 Estimated GFR (Non- 111.3 BUN/Creatinine Ratio 10.1 Random Glucose 100 mg/dl Calcium Level 9.0 mg/dl Total Bilirubin 0.5 mg/dl Direct Bilirubin 0.1 mg/dl Aspartate Amino Transf (AST/SGOT) 9 U/L Alanine Aminotransferase (ALT/SGPT) 34 U/L Alkaline Phosphatase 55 U/L C-Reactive Protein 2.32 mg/dl Total Protein 8.4 gm/dl Albumin 3.2 gm/dl Bedside Lactic Acid Venous 0.77 mmol/L Venous Blood pH 7.40 Venous Blood Partial Pressure CO2 41 mmHg Venous Blood Partial Pressure O2 44 mmHg Venous Blood HCO3 24 mmol/L Venous Blood Oxygen Saturation 78.4 % Venous Blood Base Excess -0.4 mEq/L Bedside Troponin I < 0.030 ng/ml [id number] Natriuretic Peptide 71 pg/ml Test 09/18/16 00:19 09/18/16 07:00 09/18/16 08:28 Activated Partial Thromboplast Time 39.5 SECONDS 63.0 SECONDS Partial Thromboplastin Ratio 1.5 2.4 White Blood Count 10.79 K/uL Red Blood Count 5.16 M/uL Hemoglobin 13.9 g/dL Hematocrit 43.7 % Mean Corpuscular Volume 84.7 fL Mean Corpuscular Hemoglobin 26.9 pg Mean Corpuscular Hemoglobin Concent 31.8 g/dl Platelet Count 257 K/uL Mean Platelet Volume 9.1 fL Neutrophils (%) (Auto) 71.9 % Lymphocytes (%) (Auto) 16.9 % Monocytes (%) (Auto) 9.8 % Eosinophils (%) (Auto) 0.7 % Basophils (%) (Auto) 0.2 % Neutrophils # (Auto) 7.76 K/uL Lymphocytes # (Auto) 1.82 K/uL Monocytes # (Auto) 1.06 K/uL Eosinophils # (Auto) 0.08 K/uL Basophils # (Auto) 0.02 K/uL RDW Standard Deviation 46.9 fL RDW Coefficient of Variation 15.1 % Immature Granulocyte % (Auto) 0.5 % Immature Granulocyte # (Auto) 0.05 K/uL Toxic Granulation 1+ Sodium Level 136 mmol/L Potassium Level 3.3 mmol/L Chloride Level 100 mmol/L Carbon Dioxide Level 27 mmol/L Anion Gap 9.0 mmol/L Blood Urea Nitrogen 10 mg/dl Creatinine 0.76 mg/dl Est Creatinine Clear Calc Drug Dose 89.4 ml/min Estimated GFR () 129.1 Estimated GFR (Non- 111.3 BUN/Creatinine Ratio 13.2 Random Glucose 97 mg/dl Calcium Level 9.0 mg/dl Assessment & Plan Provoked deep venous thrombosis with pulmonary emboli. CT scans were reviewed. She does have considerable amount of intra-abdominal vessel clot. There is a hint that it tends to be left-sided. Pulmonary emboli are also noted with an area that may be result of possible pulmonary infarction. This clot can be considered provoked because of the recent travel as well as the underlying ulcerative colitis in the recent use of control medicine. There needs to also be a consideration of an underlying May-Lewis syndrome. Vascular surgery has been consulted. I suspect a filter will be needed but also the consideration of exploring the possibility of underlying May-Lewis the use then of stints/angioplasty and/or whether thrombolytic therapy might be necessary. In regards to anticoagulation. I would recommend IV heparin for 5-7 days and then switch to oral anticoagulation preferably Coumadin for now. I would anticipate at least 3-6 months worth of this anticoagulation. She has been informed to avoid hormonal medicine such as control pills in the future. 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 Finally all long car trips or plane rides need to be associated with getting up and stretching at least every 1-2 hours. She is planning to relocate back to her home in [place] at the end of this discharge.
[2016-09-18] MEDS: OXYCODONE/ACETAMINOPHEN 5-325 TAB PO PRN ×2 (14:51→20:49)
[2016-09-19] VITALS (7 sets, daily range): BP systolic 114–133; BP diastolic 72–96; PULSE 71–85; TEMP 36.5–36.9; O2SAT 97–100
[2016-09-19] MEDS: OXYCODONE/ACETAMINOPHEN 5-325 TAB PO PRN ×2 (03:11→21:45)
[2016-09-19 05:28] LABS: MEAN CELL VOLUME 83.9 fL (80-100); MEAN CORPUSCULAR HEMOGLOBIN 27.7 pg (25-34); MEAN PLATELET VOLUME 9.2 fL (7.4-10.4); PLATELET COUNT 242 K/uL (130-400); RED BLOOD COUNT 4.65 M/uL (4.2-5.4); WHITE BLOOD COUNT 9.15 K/uL (4.8-10.8)
[2016-09-19 05:31] LABS: MEAN CORPUSCULAR HGB CONC 33.1 g/dl (32-36)
[2016-09-19 05:54] LABS: BLOOD UREA NITROGEN 7 mg/dl (7-18); BUN/CREATININE RATIO 13.6 (10-20); CALCIUM 8.5 mg/dl (8.5-10.1); CARBON DIOXIDE 30 mmol/L (21-32); CHLORIDE 103 mmol/L (98-107); CREATININE 0.54 mg/dl (0.60-1.20); GLUCOSE 123 mg/dl (70-99); POTASSIUM 3.2 mmol/L (3.5-5.1); SODIUM 138 mmol/L (136-145)
[2016-09-19 05:56] LABS: PARTIAL THROMBOPLASTIN RATIO 1.7
[2016-09-19] MEDS ORDERED: HEPARIN IV BOLUS 2,000 UNIT in SYRINGE 0 ML IV STA (06:41)
[2016-09-19] MEDS: POTASSIUM CHLORIDE 20 MEQ TABCR PO SCH (09:09)
--- NOTE | 2016-09-19 09:45 | Hospitalist Progress Note ---
Hospitalist Progress Note Date of Service Sep 19, 2016. Subjective Pt evaluation today including: conversation w/ patient, conversation w/ family , physical exam, chart review, lab review, review of studies, review of inpatient medication list Patient seen and evaluated. No acute events overnight. Reporting some leg pain but well controlled with oral medications. Reporting diarrhea is improving and GI symptoms relatively stable. No active bleeding or concerns. LLE warm and equal to touch compared to RLE which is improved from yesterday but still more edematous. 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 Constitutional: No fever, No chills Respiratory: No cough, No shortness of breath Cardiovascular: No chest pain, No palpitations Abdomen: + diarrhea (improving), No pain, No nausea, No vomiting, No GI bleeding Musculoskeletal: + problem reported (LLE pain - pelvic and lower extremity) Heme: No abnormal bleeding/bruising Medications Current Inpatient Medications Medications (Trade) Dose Ordered Sig/Vladislav Route Start Time Stop Time Status Last Admin Dose Admin Ioversol (Optiray 320) 111 ml UD PRN IV 09/17/16 16:15 09/21/16 16:14 Prednisone (PredniSONE TAB) 10 mg TID PO 09/18/16 09:00 10/18/16 08:59 09/19/16 07:55 10 MG Miscellaneous Information (Order Awaiting Action) 1 ea QS N/A 09/18/16 00:00 10/18/16 00:00 Acetaminophen (Tylenol Tab) 650 mg Q4H PRN PO 09/17/16 18:30 10/17/16 18:29 09/17/16 21:09 650 MG Al Hydrox/Mg Hydrox/Simethicone (Maalox Max Susp) 15 ml Q4H PRN PO 09/17/16 18:30 10/17/16 18:29 Magnesium Hydroxide (Milk Of Magnesia Susp) 30 ml Q12H PRN PO 09/17/16 18:30 10/17/16 18:29 Zolpidem Tartrate (Ambien Tab) 5 mg HSZ PRN PO 09/17/16 18:30 10/17/16 18:29 Ondansetron HCl (Zofran Inj) 4 mg Q6H PRN IV 09/17/16 18:30 10/17/16 18:29 Polyethylene (Miralax Powder Packet) 17 gm DAILY PRN PO 09/17/16 18:30 10/17/16 18:29 Heparin Sodium/ Dextrose 500 ml @ 23 mls/hr [id number] PRN IV 09/17/16 19:00 10/17/16 18:59 09/18/16 17:16 21 MLS/HR Oxycodone/ Acetaminophen (Percocet 5-325mg Tab) 1 tab Q6H PRN PO 09/17/16 21:30 10/01/16 21:29 09/19/16 03:11 1 TAB Potassium Chloride (Klor-Con Tab) 20 meq QAM PO 09/19/16 09:00 10/19/16 08:59 09/19/16 09:09 20 MEQ Objective Vital Signs Date Time Temp Pulse Resp B/P (MAP) Pulse Ox O2 Delivery O2 Flow Rate FiO2 09/19/16 08:00 99 Room Air 09/19/16 08:00 36.5 85 20 114/72 (86) 97 Room Air 09/19/16 04:00 Room Air 09/19/16 04:00 36.9 71 22 133/96 (108) 100 Room Air 09/19/16 00:10 36.9 75 18 115/85 (95) 97 Room Air 09/19/16 00:00 Room Air 09/18/16 20:00 99 Room Air 09/18/16 19:55 37.0 89 12 113/82 (92) 97 Room Air 09/18/16 16:00 99 Room Air 09/18/16 15:17 37.1 76 16 110/74 (86) 97 Room Air 09/18/16 12:00 99 Room Air 09/18/16 11:12 37.2 72 20 114/71 (85) 96 Room Air Physical Exam General Appearance: no apparent distress, + thin Eyes: sclerae normal ENT: hearing grossly normal Neck: supple, no JVD, trachea midline Respiratory/Chest: lungs clear, normal breath sounds, no respiratory distress, no accessory muscle use Cardiovascular: regular rate, rhythm, no gallop, no murmur Abdomen: normal bowel sounds, non tender, soft Extremities: + pertinent finding (LLE warm to touch and equal to RLE; posterior tibialis 2+; non-pitting edema extending up to thigh greater in L than R) Neurologic/Psychiatric: alert, oriented x 3 Skin: normal color, warm/dry Laboratory Results Last 24 Hours Test 09/19/16 04:49 White Blood Count 9.15 K/uL Red Blood Count 4.65 M/uL Hemoglobin 12.9 g/dL Hematocrit 39.0 % Mean Corpuscular Volume 83.9 fL Mean Corpuscular Hemoglobin 27.7 pg Mean Corpuscular Hemoglobin Concent 33.1 g/dl RDW Standard Deviation 45.4 fL RDW Coefficient of Variation 14.8 % Platelet Count 242 K/uL Mean Platelet Volume 9.2 fL Activated Partial Thromboplast Time 45.4 SECONDS Partial Thromboplastin Ratio 1.7 Sodium Level 138 mmol/L Potassium Level 3.2 mmol/L Chloride Level 103 mmol/L Carbon Dioxide Level 30 mmol/L Anion Gap 5.0 mmol/L Blood Urea Nitrogen 7 mg/dl Creatinine 0.54 mg/dl Est Creatinine Clear Calc Drug Dose 125.9 ml/min Estimated GFR () > 150.0 Estimated GFR (Non- 133.9 BUN/Creatinine Ratio 13.6 Random Glucose 123 mg/dl Calcium Level 8.5 mg/dl Assessment and Plan Ms. Sanchez is a 21 y/o female with PMHx of Ulcerative Colitis who presents for DVT in pelvic vessels/IVC and B/L PEs with LLL infarct Provoked Pelvic/IVC DVT and B/L PEs with LLL Infarct: STABLE - Patient with pro-inflammatory state 2/2 UC, limited mobilization 2/2 illness, contraceptives, and recent travel - Hypercoaguable work-up can be considered as outpatient as heparin already initiated - Heparin gtt with plans to utilize Coumadin per recommendations from Heme/Onc -- Continue heparin gtt at this time to make sure clot burden is stable and will start bridge - Heme/Onc following - recommend heparin gtt x 5-7 days then Coumadin possibly 3 -6 months - Vascular consultation - no surgical intervention at this time Ulcerative Colitis vs Crohns: - CT with evidence of small bowel involvement - should send CD-rom with imaging so she can take to her GI doctor -- Follows with Dr. Carnes in [place] - Prednisone 10 mg TID - is utilizing taper -- Should be on BID dosing as of last weekend but her GI symptoms worsend and her GI doctor recommended staying of TID dosing for now without further instructions - Mesalamine BID - non-formulary and patient will have to bring medication DVT Prophylaxis: Heparin Code Status: FULL RESUSCITATION Disposition: - Will await evaluation by Heme and Vascular - will need conversion to oral anticoagulants - She is due to return to [place] on Friday but said she is flexible - No PCP but utilizes [facility] who set up her GI doctor - will also need routine INR checks and PCP follow-up Continued [facility] stay due to: multiple IV medications needed Discharge planning: home
--- NOTE | 2016-09-19 12:14 | Hematology/Oncology Prog Note ---
Hematology/Onc Progress Note Date of Service Sep 19, 2016. Diagnoses DVT and pulmonary emboli Medications Medications Administered Medications (Trade) Dose Ordered Sig/Vladislav Route Start Time Stop Time Status Last Admin Dose Admin Sodium Chloride 500 ml @ 500 mls/hr Q1H IV 09/17/16 13:15 09/17/16 20:49 DC 09/17/16 13:15 500 MLS/HR Magnesium Oxide (Mag-Ox Tab) 800 mg ONE STAT PO 09/17/16 14:44 09/17/16 14:45 DC 09/17/16 15:31 800 MG Potassium Chloride (Klor-Con M10) 40 meq NOW STAT PO 09/17/16 14:44 09/17/16 14:45 DC 09/17/16 15:30 40 MEQ Heparin Sodium/ Dextrose (Heparin 25,000 Unit/500ml D5W) 25,000 unit STK-MED ONCE .ROUTE 09/17/16 17:50 09/17/16 17:51 DC 09/17/16 18:00 25,000 UNIT Heparin Sodium (Porcine) (Heparin Sq 5000 Unit/0.5ml) 5,000 unit STK-MED ONCE .ROUTE 09/17/16 17:50 09/17/16 17:51 DC 09/17/16 17:59 4,000 UNIT Morphine Sulfate (MoRPHine SULFATE INJ) 4 mg NOW STAT IV 09/17/16 18:07 09/17/16 18:08 DC 09/17/16 18:16 4 MG Prednisone (PredniSONE TAB) 10 mg TID PO 09/18/16 09:00 10/18/16 08:59 09/19/16 07:55 10 MG Acetaminophen (Tylenol Tab) 650 mg Q4H PRN PO 09/17/16 18:30 10/17/16 18:29 09/17/16 21:09 650 MG Heparin Sodium/ Dextrose 500 ml @ 23 mls/hr [id number] PRN IV 09/17/16 19:00 10/17/16 18:59 09/18/16 17:16 21 MLS/HR Prednisone (PredniSONE TAB) 10 mg STK-MED ONCE .ROUTE 09/17/16 19:51 09/17/16 19:52 DC 09/17/16 19:53 10 MG Oxycodone/ Acetaminophen (Percocet 5-325mg Tab) 1 tab Q6H PRN PO 09/17/16 21:30 10/01/16 21:29 09/19/16 03:11 1 TAB Heparin Sodium (Porcine) 4000 unit/Syringe 4 ml @ 10 mls/min NOW STAT IV 09/18/16 01:18 09/18/16 01:19 DC 09/18/16 01:34 10 MLS/MIN Potassium Chloride (Klor-Con M10) 40 meq NOW ONCE PO 09/18/16 10:00 09/18/16 10:01 DC 09/18/16 10:05 40 MEQ Heparin Sodium (Porcine) 2000 unit/Syringe 2 ml @ 10 mls/min NOW STAT IV 09/19/16 06:41 09/19/16 06:42 DC 09/19/16 06:47 10 MLS/MIN Potassium Chloride (Klor-Con Tab) 20 meq QAM PO 09/19/16 09:00 10/19/16 08:59 09/19/16 09:09 20 MEQ Subjective She denies worsening shortness of breath or chest pain. There is no hemoptysis. The left leg remains mildly swollen Review of Systems: Constitutional: Negative for weight loss, night sweats, or fever Eyes: Negative for event change of vision ENT: Negative for epistaxis, nasal discharge, sore throat, or deafness Cardiovascular: Negative for chest pain, palpitations, dizziness, diaphoresis Respiratory: Negative for new shortness of breath,hemoptysis, or purulent cough Gastrointestinal: Negative for diarrhea, hematemesis, melena, nausea, vomiting , or dyspepsia Integumentary (skin): Negative for rash or jaundice discoloration Genitourinary: Negative for urinary frequency, hematuria, or dysuria Neurological: Negative for weakness, seizure activity, headache, or dizziness Lymphatic/Hematologic: Negative for petechiae, bleeding or new adenopathy Musculoskeletal: Negative for new joint or back pain Allergic/Immunologic: Negative for unusual rash or pruritis. Vital Signs Vital Signs Past 12 Hours Date Time Temp Pulse Resp B/P (MAP) Pulse Ox O2 Delivery O2 Flow Rate FiO2 09/19/16 10:49 36.5 85 20 97 09/19/16 08:00 99 Room Air 09/19/16 08:00 36.5 85 20 114/72 (86) 97 Room Air 09/19/16 04:00 Room Air 09/19/16 04:00 36.9 71 22 133/96 (108) 100 Room Air 09/19/16 00:10 36.9 75 18 115/85 (95) 97 Room Air Physical Exam Constitutional: vitals are stable. Eyes: Eyes are CHRISTY EOMI without conjuctival erythema or icterus. ENT: External examination was negative for masses. Neck: Negative for masses or palpable thyromegaly Respiratory: Lung sounds were generally clear bilaterally Cardiovascular: Heart was RRR without significant murmur, gallops aoe rubs Gastrointestinal: No palpable hepatic or splenomegaly. The abdomen was soft with normal bowel sounds. Lymphatic system: there was no palpable peripheral lymphadenopathy Musculoskeletal System: The musculoskeletal system seemed concordant with age. Skin: The skin was negative for jaundice. Neurologic exam: The exam was negative for any focal findings. Deep tendon reflexes were equal and symmetrical. Psychiatric exam: Was essentially negative with normal mood and effect. Breast exam: Not done Extremites: Left leg remains mildly edematous and nontender Laboratory Last 24 Hours Test 09/19/16 04:49 White Blood Count 9.15 K/uL Red Blood Count 4.65 M/uL Hemoglobin 12.9 g/dL Hematocrit 39.0 % Mean Corpuscular Volume 83.9 fL Mean Corpuscular Hemoglobin 27.7 pg Mean Corpuscular Hemoglobin Concent 33.1 g/dl RDW Standard Deviation 45.4 fL RDW Coefficient of Variation 14.8 % Platelet Count 242 K/uL Mean Platelet Volume 9.2 fL Activated Partial Thromboplast Time 45.4 SECONDS Partial Thromboplastin Ratio 1.7 Sodium Level 138 mmol/L Potassium Level 3.2 mmol/L Chloride Level 103 mmol/L Carbon Dioxide Level 30 mmol/L Anion Gap 5.0 mmol/L Blood Urea Nitrogen 7 mg/dl Creatinine 0.54 mg/dl Est Creatinine Clear Calc Drug Dose 125.9 ml/min Estimated GFR () > 150.0 Estimated GFR (Non- 133.9 BUN/Creatinine Ratio 13.6 Random Glucose 123 mg/dl Calcium Level 8.5 mg/dl Assessment & Plan DVT with intra-abdominal venous thrombosis as well as evidence of pulmonary emboli and infarction. She is now on heparin. This is day 2-3. CBC is acceptable. Notes reflect that vascular surgery feels there is not a role for an IVC filter and because of the possibility of a pulmonary infarct no thrombolytic therapy is planned. With that then would recommend heparin 5-7 days as stated in a conversion to Coumadin. I have asked her and she will help to contact with physicians in the [place] area around her home so that there can be a transition to handle her anticoagulation going forward soon as discharge occurs. With that then we will sign off as a service. Please do not hesitate to recontact us if necessary. We did review again today the idea of avoiding hormones in the future such as control medicine and that long car rides and or plane rides over an hour need to be accompanied by stretching. Physician such as surgeons need to be notified of this recent VTE event with any future elective surgeries and finally similar information should be provided to obstetricians should she become (again in the future). Thank you. Finally please monitor CBC while on heparin RE: risk of evolving thrombocytopenia
[2016-09-19 13:50] LABS: PARTIAL THROMBOPLASTIN RATIO 1.8
[2016-09-19] MEDS: ACETAMINOPHEN 325 MG TAB PO PRN (15:40)
[2016-09-19] MEDS: HEPARIN 25,000 UNIT/500ML D5W 500 ML IV PRN (17:33)
[2016-09-20 00:10] VITALS: BP 108/71; PULSE 83; TEMP 36.8; O2SAT 98
[2016-09-20 05:09] LABS: BLOOD UREA NITROGEN 9 mg/dl (7-18); BUN/CREATININE RATIO 15.2 (10-20); CALCIUM 8.6 mg/dl (8.5-10.1); CARBON DIOXIDE 30 mmol/L (21-32); CHLORIDE 104 mmol/L (98-107); CREATININE 0.58 mg/dl (0.60-1.20); GLUCOSE 128 mg/dl (70-99); POTASSIUM 3.7 mmol/L (3.5-5.1); SODIUM 138 mmol/L (136-145)
[2016-09-20 07:17] VITALS: BP 115/81; PULSE 66; TEMP 36.6; O2SAT 98
[2016-09-20] MEDS: POTASSIUM CHLORIDE 20 MEQ TABCR PO SCH (08:09)
[2016-09-20] MEDS: OXYCODONE/ACETAMINOPHEN 5-325 TAB PO PRN (13:29)
[2016-09-20] MEDS: HEPARIN 25,000 UNIT/500ML D5W 500 ML IV PRN (13:30)
--- NOTE | 2016-09-20 13:51 | Hospitalist Progress Note ---
Hospitalist Progress Note Date of Service Sep 20, 2016. Subjective Pt evaluation today including: conversation w/ patient, physical exam, chart review, lab review, review of studies, conversation w/ customer care consultant (Dr. Jean) , review of inpatient medication list Patient seen and evaluated. No acute events overnight. Patient reporting minimal pain in the leg and is ambulating hallways. Discussed with Dr. Jean to start the Coumadin bridge. Patient in contact with her GI specialist who is assisting her with hematology follow-up in [place] Constitutional: No fever, No chills Respiratory: No cough, No wheezing, No shortness of breath Cardiovascular: No chest pain, No palpitations Abdomen: No pain, No nausea, No vomiting, No diarrhea, No constipation, No GI bleeding Musculoskeletal: + swelling (LLE - stable) Female : No dysuria Heme: No abnormal bleeding/bruising Medications Current Inpatient Medications Medications (Trade) Dose Ordered Sig/Vladislav Route Start Time Stop Time Status Last Admin Dose Admin Ioversol (Optiray 320) 111 ml UD PRN IV 09/17/16 16:15 09/21/16 16:14 Prednisone (PredniSONE TAB) 10 mg TID PO 09/18/16 09:00 10/18/16 08:59 09/20/16 13:29 10 MG Miscellaneous Information (Order Awaiting Action) 1 ea QS N/A 09/18/16 00:00 10/18/16 00:00 Acetaminophen (Tylenol Tab) 650 mg Q4H PRN PO 09/17/16 18:30 10/17/16 18:29 09/19/16 15:40 650 MG Al Hydrox/Mg Hydrox/Simethicone (Maalox Max Susp) 15 ml Q4H PRN PO 09/17/16 18:30 10/17/16 18:29 Magnesium Hydroxide (Milk Of Magnesia Susp) 30 ml Q12H PRN PO 09/17/16 18:30 10/17/16 18:29 Zolpidem Tartrate (Ambien Tab) 5 mg HSZ PRN PO 09/17/16 18:30 10/17/16 18:29 Ondansetron HCl (Zofran Inj) 4 mg Q6H PRN IV 09/17/16 18:30 10/17/16 18:29 Polyethylene (Miralax Powder Packet) 17 gm DAILY PRN PO 09/17/16 18:30 10/17/16 18:29 Heparin Sodium/ Dextrose 500 ml @ 23 mls/hr [id number] PRN IV 09/17/16 19:00 10/17/16 18:59 09/20/16 13:30 23 MLS/HR Oxycodone/ Acetaminophen (Percocet 5-325mg Tab) 1 tab Q6H PRN PO 09/17/16 21:30 10/01/16 21:29 09/20/16 13:29 1 TAB Potassium Chloride (Klor-Con Tab) 20 meq QAM PO 09/19/16 09:00 10/19/16 08:59 09/20/16 08:09 20 MEQ Warfarin Sodium (Coumadin Tab) 5 mg DAILY@16 PO 09/20/16 16:00 10/20/16 15:59 Objective Vital Signs Date Time Temp Pulse Resp B/P (MAP) Pulse Ox O2 Delivery O2 Flow Rate FiO2 09/20/16 08:00 Room Air 09/20/16 07:17 36.6 66 16 115/81 (92) 98 Room Air 09/20/16 00:10 36.8 83 18 108/71 (83) 98 Room Air 09/20/16 00:00 Room Air 09/19/16 16:00 Room Air 09/19/16 15:18 36.9 82 16 116/80 (92) 97 Room Air Physical Exam General Appearance: no apparent distress, + thin Eyes: sclerae normal ENT: hearing grossly normal Neck: supple, no JVD, trachea midline Respiratory/Chest: lungs clear, normal breath sounds, no respiratory distress, no accessory muscle use Cardiovascular: regular rate, rhythm, no gallop, no murmur Abdomen: normal bowel sounds, non tender, soft Extremities: no calf tenderness, + swelling (LLE edema full length of extremity ; warm to touch and equal to RLE; posterior tibialis 2+) Neurologic/Psychiatric: alert, oriented x 3 Skin: normal color, warm/dry Laboratory Results Last 24 Hours Test 09/20/16 04:41 Activated Partial Thromboplast Time 51.1 SECONDS Partial Thromboplastin Ratio 2.0 Sodium Level 138 mmol/L Potassium Level 3.7 mmol/L Chloride Level 104 mmol/L Carbon Dioxide Level 30 mmol/L Anion Gap 4.0 mmol/L Blood Urea Nitrogen 9 mg/dl Creatinine 0.58 mg/dl Est Creatinine Clear Calc Drug Dose 117.0 ml/min Estimated GFR () > 150.0 Estimated GFR (Non- 130.8 BUN/Creatinine Ratio 15.2 Random Glucose 128 mg/dl Calcium Level 8.6 mg/dl Assessment and Plan Ms. Sanchez is a 21 y/o female with PMHx of Ulcerative Colitis who presents for DVT in pelvic vessels/IVC and B/L PEs with LLL infarct Provoked Pelvic/IVC DVT and B/L PEs with LLL Infarct: STABLE - Patient with pro-inflammatory state 2/2 UC, limited mobilization 2/2 illness, contraceptives, and recent travel - Hypercoaguable work-up can be considered as outpatient as heparin already initiated - Heparin gtt with Coumadin bridge - monitor INR - Heme/Onc following - Coumadin possibly 3-6 months - Vascular consultation - no surgical intervention at this time Ulcerative Colitis vs Crohns: - CT with evidence of small bowel involvement - should send CD-ROM with imaging so she can take to her GI doctor -- Follows with Dr. Carnes in [place] - Prednisone 10 mg TID - is utilizing taper -- Should be on BID dosing as of last weekend but her GI symptoms worsend and her GI doctor recommended staying of TID dosing for now without further instructions - Mesalamine BID - non-formulary and patient will have to bring medication DVT Prophylaxis: Heparin and Coumadin bridge Code Status: FULL RESUSCITATION Disposition: - Await therapeutic INR 2-3 and will D/C gtt. GI doctor is assisting patient in Hematology F/U in [place] - Possible D/C Friday pending therapeutic INR Continued [facility] stay due to: multiple IV medications needed Discharge planning: home
[2016-09-20 15:37] VITALS: BP 117/79; PULSE 86; TEMP 37.4; O2SAT 95
[2016-09-20] MEDS: WARFARIN SOD 5 MG TAB PO SCH (16:06)
[2016-09-20 23:57] VITALS: BP 111/72; PULSE 80; TEMP 37.4; O2SAT 96
[2016-09-21 05:15] LABS: HEMATOCRIT 38.2 % (37-47); MEAN CELL VOLUME 84.5 fL (80-100); MEAN CORPUSCULAR HEMOGLOBIN 27.9 pg (25-34); MEAN PLATELET VOLUME 8.9 fL (7.4-10.4); PLATELET COUNT 280 K/uL (130-400); RED BLOOD COUNT 4.52 M/uL (4.2-5.4); WHITE BLOOD COUNT 11.18 K/uL (4.8-10.8)
[2016-09-21 05:33] LABS: INR 1.1 (0.9-1.1); PARTIAL THROMBOPLASTIN RATIO 2.2; PROTHROMBIN TIME (PATIENT) 11.6 SECONDS (9.0-12.0)
[2016-09-21 05:40] LABS: BLOOD UREA NITROGEN 7 mg/dl (7-18); BUN/CREATININE RATIO 11.1 (10-20); CALCIUM 8.8 mg/dl (8.5-10.1); CARBON DIOXIDE 32 mmol/L (21-32); CHLORIDE 103 mmol/L (98-107); CREATININE 0.59 mg/dl (0.60-1.20); GLUCOSE 101 mg/dl (70-99); POTASSIUM 3.5 mmol/L (3.5-5.1); SODIUM 139 mmol/L (136-145)
[2016-09-21 07:25] VITALS: BP 117/76; PULSE 96; TEMP 37.5; O2SAT 98
[2016-09-21] MEDS: POTASSIUM CHLORIDE 20 MEQ TABCR PO SCH (08:38)
--- NOTE | 2016-09-21 11:08 | Hospitalist Progress Note ---
Hospitalist Progress Note Date of Service Sep 21, 2016. Subjective Pt evaluation today including: conversation w/ patient, physical exam, chart review, lab review, review of studies, review of inpatient medication list Voiding: no voiding problems, no incontinence Patient feeling well this AM. Voices no new complaints/questions/concerns. Patient denies any fever, chills, sweats, lightheadedness, dizziness, vision changes, CP, palpitations, edema, SOB, wheezing, cough, abdominal pain, nausea, vomiting, diarrhea, urinary symptoms, melena, numbness/tingling, weakness, muscle/joint pain, anxiety/depression, active bleeding, or new skin discoloration/changes. Medications Current Inpatient Medications Medications (Trade) Dose Ordered Sig/Vladislav Route Start Time Stop Time Status Last Admin Dose Admin Ioversol (Optiray 320) 111 ml UD PRN IV 09/17/16 16:15 09/21/16 16:14 Prednisone (PredniSONE TAB) 10 mg TID PO 09/18/16 09:00 10/18/16 08:59 09/21/16 08:38 10 MG Miscellaneous Information (Order Awaiting Action) 1 ea QS N/A 09/18/16 00:00 10/18/16 00:00 Acetaminophen (Tylenol Tab) 650 mg Q4H PRN PO 09/17/16 18:30 10/17/16 18:29 09/19/16 15:40 650 MG Al Hydrox/Mg Hydrox/Simethicone (Maalox Max Susp) 15 ml Q4H PRN PO 09/17/16 18:30 10/17/16 18:29 Magnesium Hydroxide (Milk Of Magnesia Susp) 30 ml Q12H PRN PO 09/17/16 18:30 10/17/16 18:29 Zolpidem Tartrate (Ambien Tab) 5 mg HSZ PRN PO 09/17/16 18:30 10/17/16 18:29 Ondansetron HCl (Zofran Inj) 4 mg Q6H PRN IV 09/17/16 18:30 10/17/16 18:29 Polyethylene (Miralax Powder Packet) 17 gm DAILY PRN PO 09/17/16 18:30 10/17/16 18:29 Heparin Sodium/ Dextrose 500 ml @ 23 mls/hr [id number] PRN IV 09/17/16 19:00 9/7/17 18:59 09/20/16 13:30 23 MLS/HR Oxycodone/ Acetaminophen (Percocet 5-325mg Tab) 1 tab Q6H PRN PO 09/17/16 21:30 10/01/16 21:29 09/20/16 13:29 1 TAB Potassium Chloride (Klor-Con Tab) 20 meq QAM PO 09/19/16 09:00 10/19/16 08:59 09/21/16 08:38 20 MEQ Warfarin Sodium (Coumadin Tab) 5 mg DAILY@16 PO 09/20/16 16:00 10/20/16 15:59 09/20/16 16:06 5 MG Objective Vital Signs Date Time Temp Pulse Resp B/P (MAP) Pulse Ox O2 Delivery O2 Flow Rate FiO2 09/21/16 08:40 Room Air 09/21/16 07:25 37.5 96 16 117/76 (90) 98 Room Air 09/21/16 00:00 Room Air 09/20/16 23:57 37.4 80 18 111/72 (85) 96 Room Air 09/20/16 16:00 Room Air 09/20/16 15:37 37.4 86 17 117/79 (92) 95 Room Air Physical Exam General Appearance: no apparent distress Eyes: normal inspection, PERRL ENT: hearing grossly normal Neck: supple Respiratory/Chest: lungs clear, no respiratory distress, no accessory muscle use Cardiovascular: regular rate, rhythm Abdomen: normal bowel sounds, non tender, soft Extremities: normal range of motion, non-tender, no calf tenderness, + swelling (LLE swelling noted ) Neurologic/Psychiatric: alert, normal mood/affect, oriented x 3 Skin: normal color, warm/dry, no rash Laboratory Results Last 24 Hours Test 09/21/16 05:05 White Blood Count 11.18 K/uL Red Blood Count 4.52 M/uL Hemoglobin 12.6 g/dL Hematocrit 38.2 % Mean Corpuscular Volume 84.5 fL Mean Corpuscular Hemoglobin 27.9 pg Mean Corpuscular Hemoglobin Concent 33.0 g/dl RDW Standard Deviation 46.7 fL RDW Coefficient of Variation 14.9 % Platelet Count 280 K/uL Mean Platelet Volume 8.9 fL Prothrombin Time 11.6 SECONDS Prothromb Time International Ratio 1.1 Activated Partial Thromboplast Time 57.3 SECONDS Partial Thromboplastin Ratio 2.2 Sodium Level 139 mmol/L Potassium Level 3.5 mmol/L Chloride Level 103 mmol/L Carbon Dioxide Level 32 mmol/L Anion Gap 4.0 mmol/L Blood Urea Nitrogen 7 mg/dl Creatinine 0.59 mg/dl Est Creatinine Clear Calc Drug Dose 115.0 ml/min Estimated GFR () > 150.0 Estimated GFR (Non- 130.1 BUN/Creatinine Ratio 11.1 Random Glucose 101 mg/dl Calcium Level 8.8 mg/dl Assessment and Plan Ms. Sanchez is a 21 y/o female with PMHx of Ulcerative Colitis who presents for DVT in pelvic vessels/IVC and B/L PEs with LLL infarct Provoked pelvic/IVC DVT and B/L PEs with LLL infarct- pro-inflammatory state 2/ 2 UC, limited mobilization 2/2 illness, contraceptives, and recent travel: - Hypercoagulable work-up as outpatient - Treating w/ Heparin gtt -- Coumadin bridge started 09/20- monitor INR - Heme/Onc following- Coumadin possibly 3-6 months - Vascular consultation- no surgical intervention at this time Ulcerative Colitis vs Crohns: - CT with evidence of small bowel involvement - should send CD-ROM with imaging so she can take to her GI doctor -- Continue outpatient f/u- follows w/ Dr. Carnes in [place] - Prednisone 10 mg TID - Mesalamine BID- non-formulary and patient will have to bring medication DVT Prophylaxis: Heparin and Coumadin bridge Code Status: FULL RESUSCITATION Disposition: Discharge to home once INR 2-3 - Will need outpatient f/u w/ slimer in [place]
[2016-09-21] MEDS: HEPARIN 25,000 UNIT/500ML D5W 500 ML IV PRN (12:58)
[2016-09-21 15:12] VITALS: BP 117/78; PULSE 81; TEMP 37; O2SAT 97
[2016-09-21] MEDS: ACETAMINOPHEN 325 MG TAB PO PRN (16:25)
[2016-09-21] MEDS: WARFARIN SOD 5 MG TAB PO SCH (17:03)
[2016-09-21] MEDS: OXYCODONE/ACETAMINOPHEN 5-325 TAB PO PRN (23:31)
[2016-09-21 23:37] VITALS: BP 121/73; PULSE 75; TEMP 37; O2SAT 99
[2016-09-22 05:20] LABS: INR 1.9 (0.9-1.1); PARTIAL THROMBOPLASTIN RATIO 2.7; PROTHROMBIN TIME (PATIENT) 20.7 SECONDS (9.0-12.0)
[2016-09-22] MEDS: HEPARIN 25,000 UNIT/500ML D5W 500 ML IV PRN ×2 (05:58→10:55)
[2016-09-22 07:09] VITALS: BP 104/69; PULSE 69; TEMP 36.8; O2SAT 98
[2016-09-22] MEDS: POTASSIUM CHLORIDE 20 MEQ TABCR PO SCH (08:03)
--- NOTE | 2016-09-22 11:23 | Hospitalist Progress Note ---
Hospitalist Progress Note Date of Service Sep 22, 2016. Subjective Pt evaluation today including: conversation w/ patient, conversation w/ family (Mother at bedside ), physical exam, chart review, lab review, review of inpatient medication list Voiding: no voiding problems, no incontinence Patient feeling well. All questions/concerns of patient/mothers answered. Denies any acute events or needs at present. Eating and drinking OK. +LLE edema, improving Patient denies any fever, chills, sweats, lightheadedness, dizziness, vision changes, CP, palpitations, SOB, wheezing, cough, abdominal pain, nausea, vomiting, diarrhea, urinary symptoms, melena, numbness/tingling, weakness, muscle/joint pain, anxiety/depression, active bleeding, or new skin discoloration/changes. Medications Current Inpatient Medications Medications (Trade) Dose Ordered Sig/Vladislav Route Start Time Stop Time Status Last Admin Dose Admin Prednisone (PredniSONE TAB) 10 mg TID PO 09/18/16 09:00 10/18/16 08:59 09/22/16 08:03 10 MG Miscellaneous Information (Order Awaiting Action) 1 ea QS N/A 09/18/16 00:00 10/18/16 00:00 Acetaminophen (Tylenol Tab) 650 mg Q4H PRN PO 09/17/16 18:30 10/17/16 18:29 09/21/16 16:25 650 MG Al Hydrox/Mg Hydrox/Simethicone (Maalox Max Susp) 15 ml Q4H PRN PO 09/17/16 18:30 10/17/16 18:29 Magnesium Hydroxide (Milk Of Magnesia Susp) 30 ml Q12H PRN PO 09/17/16 18:30 10/17/16 18:29 Zolpidem Tartrate (Ambien Tab) 5 mg HSZ PRN PO 09/17/16 18:30 10/17/16 18:29 Ondansetron HCl (Zofran Inj) 4 mg Q6H PRN IV 09/17/16 18:30 10/17/16 18:29 Polyethylene (Miralax Powder Packet) 17 gm DAILY PRN PO 09/17/16 18:30 10/17/16 18:29 Heparin Sodium/ Dextrose 500 ml @ 22 mls/hr [id number] PRN IV 09/17/16 19:00 10/17/16 18:59 8/13/17 10:55 22 MLS/HR Oxycodone/ Acetaminophen (Percocet 5-325mg Tab) 1 tab Q6H PRN PO 09/17/16 21:30 10/01/16 21:29 09/21/16 23:31 1 TAB Potassium Chloride (Klor-Con Tab) 20 meq QAM PO 09/19/16 09:00 10/19/16 08:59 09/22/16 08:03 20 MEQ Warfarin Sodium (Coumadin Tab) 3 mg DAILY@16 PO 09/22/16 16:00 10/20/16 15:59 Objective Vital Signs Date Time Temp Pulse Resp B/P (MAP) Pulse Ox O2 Delivery O2 Flow Rate FiO2 09/22/16 08:25 Room Air 09/22/16 07:09 36.8 69 16 104/69 (81) 98 Room Air 09/22/16 00:00 Room Air 09/21/16 23:37 37.0 75 18 121/73 (89) 99 Room Air 09/21/16 16:00 Room Air 09/21/16 15:12 37.0 81 16 117/78 (91) 97 Room Air Physical Exam General Appearance: no apparent distress, + thin Eyes: normal inspection, PERRL ENT: hearing grossly normal Neck: supple Respiratory/Chest: lungs clear, no respiratory distress, no accessory muscle use Cardiovascular: regular rate, rhythm Abdomen: normal bowel sounds, non tender, soft Extremities: no calf tenderness, + swelling (LLE edema, non-pitting ) Neurologic/Psychiatric: alert, normal mood/affect, oriented x 3 Skin: normal color, warm/dry, no rash Laboratory Results Last 24 Hours Test 09/22/16 04:47 Prothrombin Time 20.7 SECONDS Prothromb Time International Ratio 1.9 Activated Partial Thromboplast Time 71.1 SECONDS Partial Thromboplastin Ratio 2.7 Assessment and Plan Ms. Sanchez is a 21 y/o female with PMHx of Ulcerative Colitis who presents for DVT in pelvic vessels/IVC and B/L PEs with LLL infarct Provoked pelvic/IVC DVT and B/L PEs with LLL infarct- pro-inflammatory state 2/ 2 UC, limited mobilization 2/2 illness, contraceptives, and recent travel: - Hypercoagulable work-up as outpatient - Treating w/ Heparin gtt -- Coumadin 5 mg bridge started 09/20- monitor INR -- INR 1.1- 1.9- decrease to Coumadin 3 mg on 09/22 - Heme/Onc following- Coumadin possibly 3-6 months - Vascular consultation- no surgical intervention at this time Ulcerative Colitis vs Crohns: - CT with evidence of small bowel involvement - should send CD-ROM with imaging so she can take to her GI doctor -- Continue outpatient f/u- follows w/ Dr. Carnes in [place] - Prednisone 10 mg TID - Mesalamine BID- non-formulary and patient will have to bring medication DVT Prophylaxis: Heparin and Coumadin bridge Code Status: FULL RESUSCITATION Disposition: Discharge to home once INR 2-3 - Will need outpatient f/u w/ corporate strategist in [place]- Kevin Daniels - Copy of records for patient at discharge
[2016-09-22 13:00] LABS: PARTIAL THROMBOPLASTIN RATIO 2.3
[2016-09-22 15:39] VITALS: BP 118/77; PULSE 83; TEMP 36.8; O2SAT 99
[2016-09-22] MEDS ORDERED: WARFARIN SOD 3 MG TAB PO SCH (16:00)
[2016-09-22 21:15] VITALS: BP 115/81; PULSE 79; TEMP 37.1; O2SAT 98
--- NOTE | 2016-09-22 23:19 | Progress Note ---
Progress Note Date of Service Sep 22, 2016. Progress Note José Miguel blood in stool, h/o UC and notes that she has had this in the past; troponin was not elevated on admission and swelling in right LE resolved; heparin held for now and consult gastro ; repeat at 0230
[2016-09-22 23:24] VITALS: BP 126/91; PULSE 67; TEMP 37.2; O2SAT 99
[2016-09-23] VITALS: O2SAT 99
[2016-09-23] MEDS ORDERED: NURSING VERBAL MED ORDER ONE ×2 (01:00→03:00)
[2016-09-23 02:29] LABS: HEMATOCRIT 39.1 % (37-47); MEAN CELL VOLUME 83.5 fL (80-100); MEAN CORPUSCULAR HEMOGLOBIN 28.6 pg (25-34); MEAN PLATELET VOLUME 8.9 fL (7.4-10.4); PLATELET COUNT 303 K/uL (130-400); RED BLOOD COUNT 4.68 M/uL (4.2-5.4); WHITE BLOOD COUNT 13.28 K/uL (4.8-10.8)
[2016-09-23 02:36] LABS: MEAN CORPUSCULAR HGB CONC 34.3 g/dl (32-36)
[2016-09-23 02:41] LABS: INR 2.1 (0.9-1.1); PROTHROMBIN TIME (PATIENT) 22.7 SECONDS (9.0-12.0)
[2016-09-23] MEDS: POTASSIUM CHLORIDE 20 MEQ TABCR PO SCH (07:46)
[2016-09-23 07:47] VITALS: BP 105/69; PULSE 83; TEMP 37.2; O2SAT 99
[2016-09-23] MEDS: OXYCODONE/ACETAMINOPHEN 5-325 TAB PO PRN ×2 (08:24→14:37)
[2016-09-23] MEDS ORDERED: MESALAMINE 400 MG CAPDR PO SCH (14:00)
[2016-09-23] MEDS ORDERED: MCRK20 PO (14:02)
[2016-09-23] MEDS ORDERED: OXYC-57 PO (14:02)
[2016-09-23] MEDS ORDERED: WARF1TAB PO (14:02)
--- NOTE | 2016-09-23 14:18 | Discharge Summary ---
Discharge Summary Date of Service Sep 23, 2016. (Jayda Dewey, STEPHON) Discharge Summary Admission Date: Sep 17, 2016 at 18:25 Discharge Date: Sep 23, 2016 Discharge Disposition: Home Principal Diagnosis: DVT, bilateral PE Problems/Secondary Diagnoses: Provoked pelvic/IVC DVT and B/L PEs with LLL infarct- pro-inflammatory state 2/ 2 UC, limited mobilization 2/2 illness, contraceptives, and recent travel Ulcerative Colitis vs Crohns: Procedures: ABD/PELVIS IV CONTRAST ONLY CT DOSE: HISTORY: Pain. Claudication. concern for possible PE, tachycardia, LLE decreased santiago flow TECHNIQUE: Multiaxial CT images of the abdomen and pelvis were performed following the use of intravenous contrast. A dose lowering technique was utilized adhering to the principles of ALARA. COMPARISON STUDY: None. . Lung bases otherwise are clear. FINDINGS: Nodular density versus round atelectasis lateral aspect left lung base. This measures 12 x 11 mm.. Gallbladder is negative for distention. The kidneys enhance uniformly. Perinephric spaces are intact. Kidneys enhance uniformly Thrombus is noted within the inferior vena cava beginning at the level of the renal vein and extending inferiorly to the left iliac and pelvic veins. There is considerable thrombosis of the left iliac venous structures. The right pelvic venous structures appear patent based on this exam. The Mesenteric artery and venous structures appear patent. Portal venous structures are patent. There are findings of generalized wall edema of the a sending colon which is less prominently seen throughout the remainder the colon. There are findings of hyperemia with moderate wall thickening of considerable components of the small bowel suggesting nonspecific inflammatory process and/or enteritis. IMPRESSION: 1. Extensive thrombus throughout the inferior vena caval and left pelvic venous structures . 2. This extends from the level of the renal veins to the level of the left common femoral venous structures. 3. No evidence for thrombus formation within the hepatic or portal venous systems. 4. Wall edematous change primarily of the a sending colon but seen to a lesser extent throughout the bulk of the remaining colon. 5. Additional wall edema and hyperemia of the bulk of the small bowel. 6. Differential considerations include a generalized enteritis/colitis versus an inflammatory bowel process. 7. Normal appendix. 8. Several reactive nodes within the abdomen and pelvis and inguinal regions. 9. Nodular density left lung base laterally with CT chest follow-up recommended a later date to ensure resolution and exclude a residual nodular process. The above report was generated using voice recognition software. It may contain grammatical, syntax or spelling errors. Electronically signed by: Jose L Hooper M.D. 09/17/2016 5:02 PM Dictated Date/Time: 09/17/2016 4:51 PM The status of this report is Signed. Draft = Not yet reviewed or approved by Radiologist. Signed = Reviewed and approved by Radiologist. (CHEST FOR PE) ANGIO WITH CT DOSE: 475.26 mGy.cm HISTORY: 21 years-old Female acute tachycardia and slow flow within the left lower extremity is seen on venous Doppler of same day. No documented deep venous thrombosis identified on comparison study. TECHNIQUE: Multiple CTA images of the chest were obtained after the intravenous administration of 119 Optiray 320. Coronal and sagittal MIPS were obtained from the axial data set and were submitted for review. A dose lowering technique was utilized adhering to the principles of ALARA. COMPARISON: Duplex venous ultrasound of same day. FINDINGS: CTA: Heart is normal in size without large pericardial effusion. The thoracic aorta is normal in both course and caliber without dissection or aneurysm. There is high-grade narrowing of proximal a 70% involving the proximal aspect of the celiac trunk, nicely demonstrated on image 56 of the sagittal series. The pulmonary arterial tree is opacified to the level of the subsegmental branches. Pulmonary emboli are noted bilaterally within the distal right lumbar, posterior basal and lateral basal segments of the right lower lobe. Additional emboli are seen within the posterior basal and lateral basal segmental subsegmental branches of the left lower lobe. There is no evidence of associated right heart strain. CT CHEST: No dominant thyroid nodule. No pathologic adenopathy of the chest. There is a wedge-shaped consolidation of the lateral basal segment left lower lobe, 2.2 x 1.2 cm with surrounding groundglass opacity compatible with a pulmonary infarction. Lung mohan are otherwise clear. High attenuating material seen within the gastric lumen. The bones appear intact. IMPRESSION: 1. Bilateral pulmonary emboli are seen involving the right lower lobar and bilateral lower lobe segmental and subsegmental branches as above. There is no evidence of associated right heart strain, however there is a moderate-sized pulmonary infarction of the left lower lobe. 2. Incidental note is made of approximately 70% narrowing of the proximal celiac trunk suggesting median arcuate ligament syndrome in the appropriate clinical setting. The above report was generated using voice recognition software. It may contain grammatical, syntax or spelling errors. Electronically signed by: Rell Schroeder M.D. 09/17/2016 4:52 PM Dictated Date/Time: 09/17/2016 4:44 PM The status of this report is Signed. Draft = Not yet reviewed or approved by Radiologist. Signed = Reviewed and approved by Radiologist. CHEST ONE VIEW PORTABLE CLINICAL HISTORY: Recent travel. Tachycardia. COMPARISON STUDY: No previous studies for comparison. FINDINGS: Lung volumes are normal. Lungs are clear. There is no pneumothorax or pleural effusion. Cardiac size is normal. Mediastinal contours are normal. There is no evidence of pulmonary edema. IMPRESSION: No acute cardiopulmonary findings. Electronically signed by: Chris Luke M.D. 09/17/2016 1:35 PM Dictated Date/Time: 09/17/2016 1:34 PM The status of this report is Signed. Draft = Not yet reviewed or approved by Radiologist. Signed = Reviewed and approved by Radiologist. ART DOP DUPLEX LW EXT UNI CLINICAL HISTORY: concern for arterial insufficiency TECHNIQUE: Arterial ultrasound COMPARISON STUDY: None FINDINGS: Triphasic waveforms throughout the left leg. Ankle brachial index on the left is 1.17 involving posterior tibial artery. Dorsalis pedis index is 1.07. IMPRESSION: Normal arterial Doppler left leg. The above report was generated using voice recognition software. It may contain grammatical, syntax or spelling errors. Electronically signed by: Jose L Hooper M.D. 09/17/2016 2:57 PM Dictated Date/Time: 09/17/2016 2:55 PM The status of this report is Signed. Draft = Not yet reviewed or approved by Radiologist. Signed = Reviewed and approved by Radiologist. LEFT LOWER EXTREMITY VENOUS DOPPLER HISTORY: cyanosis of LLE compared to R, recent travel COMPARISON STUDY: None. FINDINGS: There is normal compressibility and augmentation within the left lower extremity deep venous system. There is markedly slow venous flow throughout the lower extremity. IMPRESSION: Markedly slow venous flow throughout the left lower extremity. No DVT within the left lower extremity. Electronically signed by: Bear Santizo M.D. 09/17/2016 3:00 PM Dictated Date/Time: 09/17/2016 2:58 PM The status of this report is Signed. Draft = Not yet reviewed or approved by Radiologist. Signed = Reviewed and approved by Radiologist. Consultations: Vascular surgery Hematology/oncology Gastroenterology (Jayda Dewey ., LUIS MIGUELC) Medication Reconciliation New Medications: Warfarin Sodium (Coumadin) 1 Mg Tab 3 TAB PO DAILY for 30 Days, #90 TAB Oxycodone/Acetaminophen 5MG/325MG (Percocet 5MG/325MG) Tab 1 TAB PO Q6H PRN for Pain for 3 Days, #12 TAB PAIN Potassium Chloride (Klor-Con M20) 20 Meq Tabcr 20 MEQ PO QAM for 30 Days, #30 TAB Continued Medications: Mesalamine (Lialda) 1.2 Gm Tab 2.4 TAB PO BID, 3 Refills Multivitamin (Multivitamin) Tab 1 TAB PO DAILY, TAB Prednisone (Prednisone) 10 Mg Tab 10 MG PO TID, TAB Discharge Exam Review of Systems: Constitutional: No fever, No chills, No sweats, No weakness, No fatigue Respiratory: No cough, No shortness of breath, No hemoptysis Cardiovascular: No chest pain, No edema, No palpitations Abdomen: + GI bleeding (1 episode- RESOLVED ), No pain, No nausea, No vomiting, No diarrhea, No constipation Genitourinary - Female: No dysuria, No hematuria Neurologic: No weakness, No numbness/tingling Psychiatric: No depression symptoms, No anxiety Endocrine: No fatigue Hematologic / Lymphatic: No abnormal bleeding/bruising Integumentary: No rash, No itch, No new/changing skin lesions Physical Exam: General Appearance: no apparent distress, + thin Eyes: normal inspection, PERRL ENT: hearing grossly normal Neck: supple Respiratory/Chest: lungs clear, no respiratory distress, no accessory muscle use Cardiovascular: regular rate, rhythm Abdomen / GI: normal bowel sounds, non tender, soft Extremities: no calf tenderness, + swelling (mild LLE swelling, non-pitting ) Neurologic/Psychiatric: alert, normal mood/affect, oriented x 3 Skin: normal color, warm/dry, no rash (Jayda Dewey ., PA-C) Hospital Course Admission H&P: 21 y/o F Hx UC . Pt was recently on flights to [place] and then also drove to [place] from [facility]. She developed pain and swelling in her LLE and presented for evaluation. She denies SOB, CP or palpitations. A CT abdomen/ pelvis revealed a DVT extending from the pelvic veins into the IVC. A CT chest revealed B/L pulmonary emboli in addition to a LLL pulmonary infarct. Physical Exam Vital Signs Date Time Temp Pulse Resp B/P (MAP) Pulse Ox O2 Delivery O2 Flow Rate FiO2 09/17/16 18:13 99 18 101/76 98 Room Air 09/17/16 17:55 97 Room Air 09/17/16 17:32 81 09/17/16 14:59 82 20 105/72 97 Room Air 09/17/16 13:34 120 18 101/69 99 Room Air 09/17/16 12:55 95 09/17/16 12:45 37.1 121 18 129/95 99 09/17/16 12:30 37.1 121 18 129/95 99 General Appearance: WD/WN, no apparent distress Head: normocephalic Eyes: normal inspection ENT: normal ENT inspection, pharynx normal Neck: supple, no JVD Respiratory/Chest: chest non-tender, lungs clear, normal breath sounds Cardiovascular: regular rate, rhythm, no edema, no gallop Abdomen/GI: normal bowel sounds, non tender, soft Back: normal inspection, no CVA tenderness, no muscle spasm, normal range of motion Extremities/Musculoskelatal: + pertinent finding (LLE appears enlarged - pulses present) Neurologic/Psych: shear operator automatic II-XII nml as tested, no motor/sensory deficits, alert, normal mood/affect, normal reflexes, oriented x 3 Skin: normal color, warm/dry Hospital Course: Provoked pelvic/IVC DVT and B/L PEs with LLL infarct- pro-inflammatory state 2/ 2 UC, limited mobilization 2/2 illness, contraceptives, and recent travel: - Hypercoagulable work-up as outpatient - Treating w/ Heparin gtt -- Coumadin 5 mg bridge started 09/20- monitor INR -- INR 2.1 at discharge- Coumadin 3 mg at discharge - Heme/Onc following- Coumadin possibly 3-6 months -- Discussed d/c of IV Heparin w/ Dr. Lin prior to discharge- IV Heparin can be d/c'd and continue on Coumadin only - Vascular consultation- no surgical intervention at this time Ulcerative Colitis vs Crohns: - CT with evidence of small bowel involvement - should send CD-ROM with imaging so she can take to her GI doctor -- Continue outpatient f/u- follows w/ Dr. Carnes in [place] - Prednisone 10 mg TID, Mesalamine BID - Episode of gross bloody stool on 09/23- RESOLVED: -- H&H stable -- Consulted GI- recommend restarting Mesalamine WILLI- stable for discharge -- Had 2 more BMs prior to discharge w/out any blood present. Per patient, not uncommon w/ h/o UC and she is currently in a flare DVT Prophylaxis: Heparin and Coumadin bridge Code Status: FULL RESUSCITATION Disposition: Discharge to home - PCP f/u on 09/27 - Hematology f/u on 10/02 - Script for INR on 09/25- Dr. Carpenter will f/u Total Time Spent: Greater than 30 minutes This includes examination of the patient, discharge planning, medication reconciliation, and communication with other providers. (Jayda Dewey PA-C) Discharge Instructions Please refer to the electronic Patient Visit Report (Discharge Instructions) for additional information. (Jayda Dewey PA-C) Follow-Up INR check on 09/25 at [facility] PCP follow-up on 09/27 Hematology follow-up on 10/02 Please call your GI doctor to schedule a follow-up within the next 1-2 weeks Please follow-up/keep all of your subspecialty appointments (Jayda Dewey PA-C) Additional Copies To Kevin Brown Reviewed: Pt Seen/Exam by Me (Stacy Carpenter DO) History L LE swelling is resolved with only slight discoloration at this time. Tolerating PO without issue. Denies chest pain, SOB. Agree with HPI/ROS as noted above. (Stacy Carpenter DO) General Appearance: WD/WN, no apparent distress Respiratory: normal breath sounds, no respiratory distress Cardiovascular: normal peripheral pulses, regular rate, rhythm Gastrointestinal: non tender, soft Extremities: non-tender, no pedal edema Neurologic/Psychiatric: alert, normal mood/affect Skin Characteristics: normal color (in general with mild discoloration of L LE , mostly noted around the knee), warm/dry (Stacy Carpenter DO) Assessment/Plan Agree with plan as outlined above Extensive provoked DVT with PE GIB likely related to UC Hem/onc recs for abbreviated heparin bridging given bleeding and therapeutic INR Appts set up with home GI and new hem/onc and PCP Check INR in 2 days (Stacy Carpenter, DO)
--- NOTE | 2016-09-23 14:19 | Discharge Instructions ---
Discharge Instructions Date of Service Sep 23, 2016. Admission Reason for Admission: Dvt, Thrombosis Of Pelvic Vein VTE Date & Time Date of VTE Diagnosis: Sep 17, 2016 Time of VTE Diagnosis: 16:00 Discharge Goals Goal(s): Decrease discomfort, Improve function, Improve disease control, Learn about illness, Diagnostic testing, Therapeutic intervention, Prevent Disease Progression Activity Recommendations Activity Limitations: resume your previous activity . Instructions / Follow-Up Instructions / Follow-Up Coumadin 3 mg by mouth at bedtime You will need to get your INR checked on Friday, the results will be forwarded to Dr. Carpenter. You will then be further instructed on your Coumadin dosage. Potassium supplement 20 mEq by mouth once daily Resume all other regular home medications as prescribed For travels over 1-2 hours, it is important you get up and stretch/walk for a few minutes FOLLOW-UPS: INR check on 09/25 at [facility] PCP follow-up on 09/27 Hematology follow-up on 10/02 Please call your GI doctor to schedule a follow-up within the next 1-2 weeks Please follow-up/keep all of your subspecialty appointments Medication Instructions: * Warfarin is a medicine prescribed to prevent blood clots * Warfarin will thin your blood and help prevent new clots * Take your medications exactly as directed * Never skip a dose. Never take a double dose. If you miss a dose, take it as soon as you remember * It is important for your doctor to monitor your prothrombin time (PT). This is a lab test * Keep your appointment for lab tests Risk of Adverse Drug Reactions and Interactions: * Warfarin increases your risk of bleeding * The food you eat and other medications you take can affect how Warfarin works in your body * Ask your doctor about daily aspirin therapy * It is very important to talk with your doctor about all of the other medicines , antibiotics, vitamins or herbal products that you are taking * All of your medication must be approved by your doctor, including new medicines, as well as medicines you have taken before you started taking Warfarin Diet: * In order for Warfarin to work properly, it is important to keep your intake of Vitamin K as consistent as possible * You should avoid any sudden change in Vitamin K intake * Report any significant changes in your diet or weight to your doctor Call your Primary Care doctor if you experience any of the following: * Swelling or Pain in your leg * Sudden, continuous pain deep in a muscle * Pain that worsens when you are active or when you stand still for a long time * Chest Pain * Sudden Shortness of Breath * Rapid or pounding heart beat * Fainting * Dizziness * Cough with blood or bloody sputum * Sweating more than normal * Bruises * Heavy or uncontrolled bleeding * Blood in your urine, stool or vomit * Black or tarry stools Caring for Your Self at Home: * Avoid sitting, standing or lying down for long periods without moving your legs and feet * When traveling by car, stop to get out and move around at least once every 3 hours * On long airplane, train or bus rides, get up and move around when possible * If you can't get up, wiggle your toes and tighten your calves to keep your blood moving Follow Up: It is important for you to keep your follow up appointments with your medical provider. Current Hospital Diet Patient's current hospital diet: Regular Diet, Low Fiber Diet Discharge Diet Recommended Diet: Regular Diet, Low Fiber Diet Pending Studies Studies pending at discharge: no Medical Emergencies . Who to Call and When: Medical Emergencies: If at any time you feel your situation is an emergency, please call 911 immediately. . Non-Emergent Contact Non-Emergency issues call your: Primary Care Provider . . "Provider Documentation" section prepared by Jayda Dewey. . VTE Core Measure Inpt VTE Proph given/why not?: Warfarin (Coumadin), Other Anticoagulation Reason no anticoag overlap I/P: Treatment provided - N/A Reason no anticoag overlap @DC: Treatment not indicated
--- NOTE | 2016-09-23 16:19 | GASTROINTESTINAL CONSULTATION ---
DATE OF CONSULTATION: 09/23/2016 REASON FOR EVALUATION: Ulcerative colitis with a DVT and pulmonary embolus. 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 The patient reports that for the past year, she has been having diarrhea and weight loss and then recently started having rectal bleeding. A month ago, she saw a occupational therapy assist in [place], who did a colonoscopy and diagnosed her with ulcerative pancolitis. She has been treated with Lialda 2.4 grams a day and prednisone 10 mg 3 times a day for the past month. While here visiting with her parents, she developed swelling in her leg on the left lower extremity and presented to the hospital, where she was found to have a DVT extending from the renal vein level of the inferior vena cava down into the pelvis. Chest CT showed bilateral pulmonary emboli in addition to infarction of the left lower lobe. CT of the abdomen showed a DVT extending into the pelvic veins as well as some inflammation in the colon consistent with colitis. Since being in the hospital, the patient has not been taking her Lialda and she has noticed that she is having a little more bleeding, which had actually stopped since she started taking the Lialda and prednisone. The patient was started on heparin and then converted to Coumadin while she has been in the hospital and has an appointment to go back and see a occupational therapy assist in [place] in the very near future. She is currently not having any abdominal pain or shortness of breath. PAST MEDICAL HISTORY: Remarkable for ulcerative pancolitis diagnosed a month ago. Of note is that she was receiving a Depo hormone shot, last given 2 months ago, but stopped it at that point. She had traveled recently to [place] on a long flight and then drove from [place] to 8 hours to [place] recently. SOCIAL HISTORY: The patient does not smoke. She is single. 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 FAMILY HISTORY: Father has diabetes. Mother had breast cancer. They live in [place]. MEDICATIONS: Lialda 2.4 grams a day, prednisone 10 mg t.i.d. and multiple vitamin once a day. ALLERGIES: ADHESIVES. REVIEW OF SYSTEMS: Negative for 12 systems. PHYSICAL EXAMINATION: GENERAL: The patient appears awake, alert, in no acute distress. VITAL SIGNS: Blood pressure is 101/76, pulse 90, and O2 saturations 98% on room air. ABDOMEN: Soft. Bowel sounds are normal. There are no masses, tenderness, or hepatosplenomegaly. LABORATORY DATA: Shows a slightly elevated white count of 12.4 on admission, hemoglobin 14.9, and platelets are 245,000. Liver profile is normal. C-reactive protein is 2.32, normal being less than 0.3. Albumin was slightly low at 3.2. Arterial blood gas on room air was normal. Lactic acid was normal at 0.77. IMPRESSION: The patient has active ulcerative colitis, which is a risk factor for deep venous thromboses. She has had a significant deep venous thrombosis in the inferior vena cava, extending into the pelvis with bilateral pulmonary emboli and partial infarction of the left lower lobe lung. Vascular surgery did not feel that a filter would be indicated in this situation. She is currently on anticoagulation, which I think she will probably need to take snf. I plan on adding back mesalamine in addition to the prednisone that she is currently taking. I do not believe that rescoping her at this point would add anything. She should follow up with her occupational therapy assist in [place], however as she may need additional treatment if she does not improve as her steroids are tapered.
--- NOTE | 2016-09-25 13:45 | Progress Note ---
Progress Note Date of Service Sep 25, 2016. Progress Note Pt with INR 2.2 today. She has been on 3mg QD Last INR on 09/23 was 2.1 Can continue with 3mg and should f/u with new PCP for recheck on Wednesday 09/27. Communicated to CM Taryn Chen
== END 2016-09-23 15:20 | disposition home or self-care (01) | DRG 175 ==
LOC: C.EDB 12:24 → C.2E 18:25 → ENRESERV 18:54 → C.4E 09-19 11:00
PROVIDERS: ADMIT Internal Medicine; ATTEND Family Medicine
DX: I26.99 Other pulmonary embolism without acute cor pulmonale (principal); I82.220 Acute embolism and thrombosis of inferior vena cava; K51.90 Ulcerative colitis, unspecified, without complications; Z79.52 Long term (current) use of systemic steroids; Z79.899 Other long term (current) drug therapy; Z83.3 Family history of diabetes mellitus; Z80.3 Family history of malignant neoplasm of breast

== ENCOUNTER → 2016-09-25 | Outpatient (CLI) | payer OTHER ==
[~2016-09-25] MED LIST: MCRK20 PO; MESA1.2T PO; MULT-506 PO; OXYC-57 PO; PRED10TA PO; WARF1TAB PO
[2016-09-25 10:57] LABS: INR 2.2 (0.9-1.1); PROTHROMBIN TIME (PATIENT) 24.5 SECONDS (9.0-12.0)
--- NOTE | 2016-09-29 06:19 | CODING QUERY NO DIAGNOSIS ---
TREATMENT RENDERED WITHOUT A DIAGNOSIS To promote full compliance with coding requirements relating to patient care, physician participation is requested in all cases of fitter helper uncertainty. Please assist us with providing a diagnosis/symptom for the test(s) below: A diagnosis/symptom was not documented on your Order. A valid diagnosis/symptom is required to bill all insurances. Please remember that we are unable to code a diagnosis of rule out, probable, possible, questionable, or suspected. Tests that require a diagnosis: DOS 09/25 * PTINR DIAGNOSIS: Provider Signature: Date: Thank you Luna Tyler Health Information Management Once completed, please kindly fax back to [phone] For questions please call [phone]
--- NOTE | 2016-09-29 06:23 | EDITING REQUIRED CODING QUERY ---
TREATMENT RENDERED WITHOUT A DIAGNOSIS To promote full compliance with coding requirements relating to patient care, physician participation is requested in all cases of therapeutic specialist uncertainty. Please assist us with the question(s) below: I never saw this patient, Judy kirby PTINR on 09/25 Diagnosis: bilateral PEs, DVT Thank you! Luna Tyler
== END | disposition home or self-care (01) ==
LOC: C.LAB 09:42
PROVIDERS: ATTEND Physician Assistant
DX: I26.99 Other pulmonary embolism without acute cor pulmonale (principal); I82.409 Acute embolism and thrombosis of unspecified deep veins of unspecified lower extremity